=== PATIENT | male | born 1960 | race Caucasian/White ===

== ENCOUNTER → 2017-03-15 11:15 | Outpatient (CLI) | payer OTHER, SELFPAY ==
[2017-03-15 12:40] LABS: AST(SGOT) 18 U/L (15-37); Alanine Aminotransfer ALT/SGPT 24 U/L (16-61); Albumin, Serum 3.5 g/dL (3.2-5.0); Alkaline Phosphatase 96 U/L (45-117); Anion Gap 7 (5-15); BUN 15 mg/dL (7-18); Calcium,Total 8.6 mg/dL (8.5-10.1); Chloride 108 mmol/L (98-107); Cholesterol 149 mg/dL (200); EST Glomerular Filtration Rate 147 mL/min (>60); Est Glom Filt Rate - Afr Amer 178 mL/min (>60); Globulin 3.6 g/dL (2.2-4.2); Glucose 67 mg/dL (74-106); High Density Lipoprotein 45 mg/dL; Potassium 3.9 mmol/L (3.5-5.1); Protein, Total 7.1 g/dL (6.4-8.2); Sodium Level 143 mmol/L (136-145); Thyroid Stim Hormone (TSH) 3.94 uIU/mL (0.358-3.74); Triglycerides 108 mg/dL; Very Low Density Lipoprotein 22 mg/dL (5-40)
== END ==
PROVIDERS: Family Provider Family Medicine; PCP Family Medicine; Visit Provider Family Medicine
DX: E78.5 Hyperlipidemia, unspecified (principal); I10 Essential (primary) hypertension; E03.9 Hypothyroidism, unspecified
CPT/HCPCS: 36415; 80053; 80061; 84443

== ENCOUNTER → 2017-03-15 14:27 | Outpatient (CLI) | payer OTHER, SELFPAY | PROVIDERS: Family Provider Family Medicine; PCP Family Medicine; Visit Provider Family Medicine | DX: S20.419A Abrasion of unspecified back wall of thorax, initial encounter (principal) | CPT/HCPCS: 87070; 87205 ==

== ENCOUNTER → 2017-05-13 17:15 | Emergency (ER) | payer OTHER, SELFPAY ==
[2017-05-13 17:15] VITALS: BP 172/89; PULSE 88; RESP 16; TEMP 37; O2SAT 98; BMI 34.5
--- NOTE | 2017-05-13 17:47 | ED.DCSUM_ITS ---
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 The glass slide broke and blew apart. He states he saw a small piece of glass, shard, fly towards his right eye. He presents because of the right eye not feeling normal. He denies any change in vision or blurred vision. He denies any light sensitivity. He denies any pain with movement. He denies discomfort with blinking. He denies any ocular problems. Physical Examination: Signs remarkable for blood pressure 172/87. Visual acuity was documented on written note. There is no abdomen of the lid, lash and lacrimal glands. Pupils equal round reactive. Extraocular muscles intact. Conjunctivae is not injected. There is no subconjunctival hemorrhage noted. The eye was anesthetized with tetracaine and stained with foreseen. There is a very small circular area of uptake. Mari test was negative. Slight pressure on the globe did not result in any fluid from the area that foreseeing dye uptake was noted. There is no flare or cells in the anterior chamber. Test Results: None. Case was discussed with Dr. Daren Bird. We both were in agreement that a very fine piece of glass without show up on x-ray and CT would not be able to detect this either. Emergency Department Course and Treatment: History, physical including eye examination with slit lamp. Treatment Plan: Adacel 0.5 mg IM, ciprofloxacin ophthalmic drops and ophthalmology referral. Patient is to call the office in morning to be seen in the morning. Disposition: Discharged to home with appropriate home-going instructions Impression: 1. Traumatic injury right eye with fluorescein uptake 2. Unable to determine if globe penetration with self-sealing versus corneal abrasion This note was generated with [employer] dictation software. It may contain incorrect words, spelling, and punctuation that were not noted in review of the chart prior to signing ED Disposition - Plan for ED Patient: Disposition: Home or Assisted Living Chief Complaint: Eye Problem Instructions: Corneal Injury Referrals: Murali Comer MD [Primary Care Provider] - Daren Bird MD [STAFF PHYSICIAN] - 1 Day for another exam Additional Instructions: Call Dr. Bird's office in the morning to be seen tomorrow morning. Instill 1 drop of ciprofloxacin ophthalmic solution every 2-4 hours while awake.
[2017-05-13] MEDS: Ciprofloxacin 0.3% 2.5ml Bottle 1 DRP RIGHT EYE (18:37)
[2017-05-13] MEDS: Diphth,Pertuss(Acell),Tet Vac 0.5 ML Vial IM (18:38)
--- NOTE | 2017-05-13 18:55 | ED.RN ---
1825-Blood obtained for exposure after consent obtained from patient.
[2017-05-13 19:54] LABS: HIV - WCH Non-Reactive (Nonreactive)
[2017-05-14 11:43] VITALS: PULSE 88; RESP 16; TEMP 37; O2SAT 98
[2017-05-15 10:17] LABS: HEPATITIS B SURFACE AG Negative (Negative); Hep B Surface Antibodies EMP Non Reactive (.); Hep C Antibodies 0.1 s/co ratio (0.0-0.9)
== END | disposition home or self-care (01) ==
LOC: ED 19:47 → EDREF 19:52 → ED 05-16 07:29
PROVIDERS: Emergency Provider Emergency Medicine; Family Provider Family Medicine; PCP Family Medicine
DX: T15.01XA Foreign body in cornea, right eye, initial encounter (principal); Z79.4 Long term (current) use of insulin; X58.XXXA Exposure to other specified factors, initial encounter; Y93.89 Activity, other specified; Y92.238 Other place in hospital as the place of occurrence of the external cause; Y99.0 Civilian activity done for income or pay
CPT/HCPCS: 36415; 86703; 86803; 87340; 90471; 90715; 99283

== ENCOUNTER → 2017-06-15 10:52 | Outpatient (CLI) | payer OTHER, SELFPAY ==
[2017-06-15 12:51] LABS: Cholesterol 135 mg/dL (200); High Density Lipoprotein 42 mg/dL; Triglycerides 52 mg/dL; Very Low Density Lipoprotein 10 mg/dL (5-40)
== END ==
PROVIDERS: Family Provider Family Medicine; PCP Family Medicine; Visit Provider Family Medicine
DX: E11.9 Type 2 diabetes mellitus without complications (principal)
CPT/HCPCS: 36415; 80061; 84403

== ENCOUNTER → 2017-10-06 11:24 | Outpatient (CLI) | payer OTHER, SELFPAY ==
[2017-10-06 14:12] LABS: PSA,Total - Annual Screen 0.44 ng/mL (0.00-4.00)
== END ==
PROVIDERS: Family Provider Family Medicine; PCP Family Medicine; Visit Provider Family Medicine
DX: Z12.5 Encounter for screening for malignant neoplasm of prostate (principal)
CPT/HCPCS: 36415; 84153; G0103

== ENCOUNTER → 2017-10-07 14:28 | Outpatient (CLI) | payer OTHER, SELFPAY ==
[2017-10-07 15:22] LABS: AST(SGOT) 13 U/L (15-37); Alanine Aminotransfer ALT/SGPT 17 U/L (16-61); Albumin, Serum 3.4 g/dL (3.2-5.0); Alkaline Phosphatase 100 U/L (45-117); Anion Gap 9 (5-15); BUN 11 mg/dL (7-18); BUN/Creat Ratio 17.5 RATIO (10-20); Calcium,Total 8.5 mg/dL (8.5-10.1); Chloride 105 mmol/L (98-107); Cholesterol 127 mg/dL (200); Creatinine, Serum 0.63 mg/dL (0.70-1.30); EST Glomerular Filtration Rate 140 mL/min (>60); Est Glom Filt Rate - Afr Amer 169 mL/min (>60); Globulin 3.5 g/dL (2.2-4.2); Glucose 96 mg/dL (74-106); High Density Lipoprotein 41 mg/dL; Potassium 4.2 mmol/L (3.5-5.1); Protein, Total 6.9 g/dL (6.4-8.2); Sodium Level 140 mmol/L (136-145); Triglycerides 53 mg/dL; Very Low Density Lipoprotein 11 mg/dL (5-40)
== END ==
PROVIDERS: Family Provider Family Medicine; PCP Family Medicine; Visit Provider Family Medicine
DX: E11.9 Type 2 diabetes mellitus without complications (principal)
CPT/HCPCS: 36415; 80053; 80061

== ENCOUNTER 2018-03-26 17:42 | Emergency (ER) | payer OTHER, SELFPAY ==
[2018-03-26 17:47] VITALS: BP 152/80; PULSE 95; RESP 18; TEMP 36.4; O2SAT 98; BMI 36.6
[2018-03-26 18:25] VITALS: TEMP 36.4
[2018-03-26] MEDS: 0.9% Normal Saline 1,000 ML 1000 ML IV (18:47)
--- NOTE | 2018-03-26 18:50 | RAD_ITS ---
STUDY: X-RAY CHEST REASON FOR EXAM: Male, 57 years old. Cough TECHNIQUE: PA and lateral COMPARISON: None. FINDINGS: There appears to be very minor interstitial thickening in the lower lobes. No focal infiltrates are observed. There is no demonstrated pleural abnormality. Normal size heart. Normal mediastinum and frederick. Normal visualized pulmonary arteries. Normal visualized aortic arch and descending thoracic aorta. Dorsal spine demonstrates mild spondylosis. Normal visualized ribs, clavicles, and shoulders. There is no demonstrated abnormality of the visualized soft tissue structures of the upper abdomen. No significant change since prior exam RAD/Chest PA and Lateral IMPRESSION: No acute cardiopulmonary pathology Electronically Signed: Reagan Delcid MD at 19:35 EST , Service support ,
[2018-03-26 19:16] LABS: Absolute Neutrophil Count 2.4 X10^3/uL (2.0-7.7); Basophil# 0.02 X10^3/uL; Basophil% 0.6 % (0-1); Eosinophil# 0.04 X10^3/uL; Eosinophils% 1.2 % (0-5); Hematocrit 43.3 % (40-54); Hemoglobin 13.7 g/dl (13.0-16.5); Lymphocyte % 20.6 % (19-41); Mean Corp Hgb Conc 31.6 g/gl (32-36); Mean Corpuscular Hgb 27.5 pg (27.0-32.0); Mean Corpuscular Volume 86.9 fL (80-94); Mean Platelet Vol. 10.6 fl (6.2-12.0); Monocyte% 5.9 % (0-10); Neutrophil # 2.44 X10^3/uL (2.7-7.7); Neutrophil % 71.7 % (47-70); Platelet Count 196 K/mm3 (150-450); RBC Distribution Width CV 15.3 % (11.6-14.6); RBC Distribution Width SD 48.8 fl (35.1-43.9); Red Blood Count 4.98 M/mm3 (4.6-6.2); White Blood Count 3.4 K/mm3 (4.4-11.0)
[2018-03-26 19:30] LABS: Anion Gap 7 (5-15); BUN 14 mg/dL (7-18); BUN/Creat Ratio 18.8 RATIO (10-20); Chloride 105 mmol/L (98-107); Creatinine, Serum 0.74 mg/dL (0.70-1.30); EST Glomerular Filtration Rate 115 mL/min (>60); Est Glom Filt Rate - Afr Amer 139 mL/min (>60); Estimated Creatinine Clearance 110.14 ml/min; Glucose 165 mg/dL (74-106); POSITIVE COUNT NO; POSITIVE DIFFERENTIAL NO; POSITIVE MORPHOLOGY NO; Potassium 3.7 mmol/L (3.5-5.1); Sodium Level 138 mmol/L (136-145)
--- NOTE | 2018-03-26 19:46 | ED.DCSUM_ITS ---
- ER Visit Summary Date of Service: 03/26/18 Chief Complaint: Influenza History of Present Illness: The patient is a 57 M with history of fever, chills, and cough since March 21. 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 Patient does report poor p.o. intake. He said cough with yellow to green sputum. He continues to have waxing and waning low-grade fever. Past history is significant for reflux disease, diabetes, hypertension, high cholesterol, hypothyroidism, DVT. Physical Examination: Blood pressure is 152/80, otherwise vitals normal. He is afebrile at 97.6 at this time. Patient sitting on the side of bed no acute distress. Head neck examination reveals normal posterior pharynx. Heart is regular rate and rhythm. Lungs sounds are clear. Abdomen is soft nontender. Test Results: CBC reveals a white count of 3.4, otherwise unremarkable. Chemistry studies significant only for glucose of 165. Two-view chest x-ray shows no acute process. Emergency Department Course and Treatment: Patient was given a liter of IV fluids. I did discuss with him that Tamiflu needs to be started within the first 48 hours and no later than 72 hours after onset of symptoms. Patient is outside this window at this time. I do not think Tamiflu will be beneficial for him and he will only have side effects the medication. He is written a work note for off work until free of fever for 24 hours. Treatment Plan: [] Disposition: Discharge Impression: Influenza B This note was generated with [employer] dictation software. It may contain incorrect words, spelling, and punctuation that were not noted in review of the chart prior to signing ED Disposition - Plan for ED Patient: Disposition: Home or Assisted Living Instructions: ED Flu Referrals: Murali Comer MD [Primary Care Provider] - As Needed
[2018-03-26 20:08] VITALS: BP 160/85; PULSE 72; RESP 16; TEMP 36.8; O2SAT 94
== END 2018-03-26 20:10 | disposition home or self-care (01) ==
PROVIDERS: Emergency Provider Emergency Medicine; Family Provider Family Medicine; PCP Family Medicine
DX: J11.1 Influenza due to unidentified influenza virus with other respiratory manifestations (principal); K21.9 Gastro-esophageal reflux disease without esophagitis; E11.9 Type 2 diabetes mellitus without complications; I10 Essential (primary) hypertension; E78.00 Pure hypercholesterolemia, unspecified; E03.9 Hypothyroidism, unspecified; Z86.718 Personal history of other venous thrombosis and embolism; Z79.4 Long term (current) use of insulin; Z79.899 Other long term (current) drug therapy
CPT/HCPCS: 71046; 80048; 85025; 96360; 99283; J7030

== ENCOUNTER → 2018-05-03 13:53 | Outpatient (CLI) | payer OTHER, SELFPAY ==
[2018-05-03 16:35] LABS: ALB/GLOB Ratio 1.1 RATIO (0.9-2.4); AST(SGOT) 14 U/L (15-37); Alanine Aminotransfer ALT/SGPT 20 U/L (16-61); Albumin, Serum 3.3 g/dL (3.2-5.0); Alkaline Phosphatase 101 U/L (45-117); Anion Gap 7 (5-15); BUN 12 mg/dL (7-18); BUN/Creat Ratio 21.3 RATIO (10-20); Calcium,Total 8.2 mg/dL (8.5-10.1); Chloride 105 mmol/L (98-107); Cholesterol 137 mg/dL (200); Creatinine, Serum 0.56 mg/dL (0.70-1.30); EST Glomerular Filtration Rate 158 mL/min (>60); Est Glom Filt Rate - Afr Amer 192 mL/min (>60); Glucose 99 mg/dL (74-106); High Density Lipoprotein 46 mg/dL; Potassium 4.8 mmol/L (3.5-5.1); Protein, Total 6.3 g/dL (6.4-8.2); Sodium Level 141 mmol/L (136-145); T4 Free Direct 1.32 ng/dL (0.76-1.46); Thyroid Stim Hormone (TSH) 2.28 uIU/mL (0.358-3.74); Triglycerides 74 mg/dL; Very Low Density Lipoprotein 15 mg/dL (5-40)
== END ==
PROVIDERS: Family Provider Family Medicine; PCP Family Medicine; Referring Provider Family Medicine; Visit Provider Family Medicine
DX: E11.9 Type 2 diabetes mellitus without complications (principal); E03.9 Hypothyroidism, unspecified
CPT/HCPCS: 36415; 80053; 80061; 84439; 84443

== ENCOUNTER → 2018-08-02 | Outpatient (CLI) | payer OTHER, SELFPAY ==
[2018-08-02 16:14] LABS: AST(SGOT) 14 U/L (15-37); Alanine Aminotransfer ALT/SGPT 16 U/L (16-61); Albumin, Serum 3.5 g/dL (3.2-5.0); Alkaline Phosphatase 116 U/L (45-117); Bilirubin, Direct 0.16 mg/dL (0.00-0.30); Protein, Total 6.5 g/dL (6.4-8.2)
== END | disposition home or self-care (01) ==
LOC: MFPLAB 14:06
PROVIDERS: Family Provider Family Medicine; PCP Family Medicine; Referring Provider Family Medicine; Visit Provider Family Medicine
DX: B35.1 Tinea unguium (principal)
CPT/HCPCS: 36415; 80076

== ENCOUNTER → 2018-11-08 | Outpatient (CLI) | payer OTHER, SELFPAY ==
[2018-11-08 13:02] LABS: AST(SGOT) 14 U/L (15-37); Alanine Aminotransfer ALT/SGPT 18 U/L (16-61); Albumin, Serum 3.4 g/dL (3.2-5.0); Alkaline Phosphatase 100 U/L (45-117); Anion Gap 7 (5-15); BUN 16 mg/dL (7-18); BUN/Creat Ratio 24.1 RATIO (10-20); Calcium,Total 8.6 mg/dL (8.5-10.1); Chloride 106 mmol/L (98-107); Cholesterol 151 mg/dL (200); Creatinine, Serum 0.66 mg/dL (0.70-1.30); EST Glomerular Filtration Rate 131 mL/min (>60); Est Glom Filt Rate - Afr Amer 158 mL/min (>60); Globulin 3.5 g/dL (2.2-4.2); Glucose 131 mg/dL (74-106); High Density Lipoprotein 45 mg/dL; PSA,Total - Annual Screen 0.44 ng/mL (0.00-4.00); Potassium 4.2 mmol/L (3.5-5.1); Protein, Total 6.9 g/dL (6.4-8.2); Sodium Level 142 mmol/L (136-145); T4 Free Direct 1.28 ng/dL (0.76-1.46); Thyroid Stim Hormone (TSH) 3.71 uIU/mL (0.358-3.74); Triglycerides 69 mg/dL; Very Low Density Lipoprotein 14 mg/dL (5-40)
[2018-11-08 13:03] LABS: Vitamin D,25 Hydroxy 25.2 ng/mL (29.95-100.01)
== END | disposition home or self-care (01) ==
LOC: MFPLAB 11:05
PROVIDERS: Family Provider Family Medicine; PCP Family Medicine; Visit Provider Family Medicine
DX: E11.9 Type 2 diabetes mellitus without complications (principal); E03.9 Hypothyroidism, unspecified; E55.9 Vitamin D deficiency, unspecified; Z12.5 Encounter for screening for malignant neoplasm of prostate
CPT/HCPCS: 36415; 80053; 80061; 82043; 82306; 82570; 84153; 84439; 84443; G0103

== ENCOUNTER 2018-12-03 14:41 | Emergency (ER) | payer OTHER, SELFPAY ==
[2018-12-03 14:41] VITALS: BP 193/89; PULSE 83; RESP 16; TEMP 36.6; O2SAT 99; BMI 35.4
--- NOTE | 2018-12-03 15:11 | EKG12_ITS ---
Test Reason : Blood Pressure : / mmHG Vent. Rate : 076 BPM Atrial Rate : 076 BPM P-R Int : 152 ms QRS Dur : 068 ms QT Int : 352 ms P-R-T Axes : 065 052 067 degrees QTc Int : 396 ms Normal sinus rhythm Normal ECG Confirmed by VINCE STARK, ARNIE ([id number]), visual effects editor ADITYA RODRIGUEZ ([id number]) on 12/05/2018 11:20:17 AM Referred By: Confirmed By:ARNIE CLARKE MD
--- NOTE | 2018-12-03 15:14 | ED.DCSUM_ITS ---
- ER Visit Summary Date of Service: 12/03/18 Chief Complaint: Passed out History of Present Illness: The patient is a 58 M history of diabetes, hypertension kidney stones. Prior DVT. Patient states that on Tuesday he was in his bathroom at home he felt lightheaded he was standing up and passed out for a brief period of time. Prior to the event other than feeling lightheaded he denied any headache, chest pain or abdominal pain. No shortness of breath. He did not feel any irregular, fast or slow heart rate. He typically does not pass out. He believes his blood sugars were fine at that time. He has not passed out since. 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 He has not had a fever. He denies any cough, sore throat dysuria or diarrhea. He did have diarrhea a week ago that since resolved. Physical Examination: Middle-aged male no acute distress vital signs are stable afebrile. Pulse ox 90% room air no signs of hypoxia. HEENT exam unremarkable. Moist week's membranes. No signs of trauma to his face or scalp. Neck nontender no lymphadenopathy. Lungs clear to auscultation bilaterally. Heart regular rate and rhythm no murmur. Abdomen soft and nontender normal bowel sounds no peritoneal signs. Patient is moving all 4 extremities. Neurovascular intact. No cords. Neurologically is awake and alert with no focal motor or sensory deficits. NIH score is 0. Test Results: Chest x-ray one view portable showed no acute asthmatic read both myself and radiologist. Normal cardiac silhouette mediastinum. CBC showed a white count of 4. Hemoglobin was 12 previously was 13-1/2. This will need to be reevaluated. Chemistries normal normal creatinine gap. UA normal. Troponin normal. Lactate normal at 1.3. Orthostatic vital signs were negative. Emergency Department Course and Treatment: Middle-aged male with a syncopal episode about 36 hours ago or so. Normal exam. Clinically does not appear to be septic. He is not hypotensive. He is not tachycardic. He is not febrile. Treated with a liter normal saline. Multiple repeat exams unchanged. Normal. I did go over all test results with patient family. Treatment Plan: Follow-up with primary care physician for syncopal episode. Also may need to have his hemoglobin rechecked since it has been trending down over the last year or so. Disposition: Discharge Impression: Acute syncope of uncertain etiology Mild anemia History of diabetes and hypertension This note was generated with [employer] dictation software. It may contain incorrect words, spelling, and punctuation that were not noted in review of the chart prior to signing ED Disposition - Plan for ED Patient: Referrals: Murali Comer MD [Primary Care Provider] -
[2018-12-03 15:30] VITALS: BP 151/85; BP 162/79; PULSE 76; PULSE 88
--- NOTE | 2018-12-03 15:30 | RAD_ITS ---
STUDY: X-RAY CHEST REASON FOR EXAM: Male, 58 years old. Dizziness for one week, syncope TECHNIQUE: AP COMPARISON: 03/26/2018 FINDINGS: The lungs are clear and expanded. There is no demonstrated pleural abnormality. Normal size heart. Normal mediastinum and frederick. Normal visualized pulmonary arteries. Normal visualized aortic arch and descending thoracic aorta. Normal visualized thoracic spine. Normal visualized ribs, clavicles, and shoulders. Surgical clips project in the left upper abdomen adjacent to the diaphragm. RAD/Chest 1 View (Portable) IMPRESSION: Stable, nonacute portable x-ray examination of the chest. Electronically Signed: Chris Araujo MD (Brooks) at 15:48 EDT , Service support ,
[2018-12-03] MEDS: 0.9% Normal Saline 1,000 ML 1000 ML IV (15:39)
[2018-12-03 15:53] LABS: Mucous, Urine 0 SEEN /hpf (<or=2+); Squamous Epithelial Cells - UA 0 SEEN /hpf (0-5); White Blood Cells 0 SEEN /hpf (0-5)
[2018-12-03 15:58] LABS: Absolute Neutrophil Count 3.3 X10^3/uL (2.0-7.7); Basophil# 0.03 X10^3/uL; Basophil% 0.7 % (0-1); Eosinophils% 2.2 % (0-5); Hematocrit 38.7 % (40-54); Hemoglobin 12.3 g/dL (13.0-16.5); Lymphocyte % 15.5 % (19-41); Mean Corp Hgb Conc 31.8 g/dL (32-36); Mean Corpuscular Hgb 28.1 pg (27.0-32.0); Mean Corpuscular Volume 88.4 fL (80-94); Mean Platelet Vol. 11.1 fl (6.2-12.0); Monocyte# 0.36 X10^3/uL; NRBC Flagged by Analyzer 0 % (0-5); Neutrophil # 3.32 X10^3/uL (2.7-7.7); Neutrophil % 73.4 % (47-70); Platelet Count 196 K/mm3 (150-450); RBC Distribution Width CV 14.1 % (11.6-14.6); RBC Distribution Width SD 45.9 fl (35.1-43.9); Red Blood Count 4.38 M/mm3 (4.6-6.2); White Blood Count 4.5 K/mm3 (4.4-11.0)
[2018-12-03 16:29] LABS: Color, Urine Yellow (Yellow); Glucose, Dipstick 50 mg/dl (Normal); Ketone-Dipstick Negative (Negative); Leukocyte Esterase-Dipstick Negative /ul (Negative); Nitrite-Dipstick Negative (Negative); Occult Blood-Urine Negative /ul (Negative); Protein-Dipstick Negative (Negative); Urine Bilirubin Dipstick Negative (Negative); Urine Clarity Clear (Clear); Urine Urobilinogen 1 mg/dl (Normal)
[2018-12-03 16:33] LABS: Bacteria RARE /hpf (None Seen); Red Blood Cells-Urine 0-5 SEEN /hpf (0-5)
[2018-12-03 16:48] LABS: Anion Gap 2 (5-15); BUN 12 mg/dL (7-18); BUN/Creat Ratio 17.7 RATIO (10-20); Calcium,Total 8.4 mg/dL (8.5-10.1); Chloride 107 mmol/L (98-107); Creatinine, Serum 0.68 mg/dL (0.70-1.30); EST Glomerular Filtration Rate 128 mL/min (>60); Est Glom Filt Rate - Afr Amer 155 mL/min (>60); Estimated Creatinine Clearance 118.41 ml/min; Glucose 100 mg/dL (74-106); Lactic Acid 1.3 mmol/L (0.4-2.0); Potassium 4.3 mmol/L (3.5-5.1); Sodium Level 138 mmol/L (136-145)
--- NOTE | 2018-12-03 17:09 | ED.DEP ---
ED Disposition - Plan for ED Patient: Disposition: Home or Assisted Living Instructions: SYNCOPE, Unk Cause Referrals: Murali Comer MD [Primary Care Provider] - 3-5 Days Additional Instructions: Call and follow-up with your primary care physician. Due to the syncopal episode the episode when she passed out they may want to try a staking press operator on you to watch your heart rhythm. Also you are mildly anemic your hemoglobin is just below normal they may want to recheck that in a week or so. Otherwise your labs and x-rays and EKG today were unremarkable.
[2018-12-03 17:15] VITALS: BP 150/69; PULSE 72; RESP 17; O2SAT 98
== END 2018-12-03 17:19 | disposition home or self-care (01) ==
PROVIDERS: Emergency Provider Emergency Medicine; Family Provider Family Medicine; PCP Family Medicine
DX: R55 Syncope and collapse (principal); D64.9 Anemia, unspecified; E11.9 Type 2 diabetes mellitus without complications; I10 Essential (primary) hypertension; Z87.442 Personal history of urinary calculi; Z86.718 Personal history of other venous thrombosis and embolism
CPT/HCPCS: 71045; 80048; 81001; 83605; 84484; 85025; 93005; 96360; 99285; J7030

== ENCOUNTER 2018-12-06 15:10 | Emergency (ER) | payer OTHER, SELFPAY ==
[2018-12-06 15:11] VITALS: BP 159/82; PULSE 96; RESP 17; RESP 18; TEMP 36.8; O2SAT 96; O2SAT 97; BMI 35.4
--- NOTE | 2018-12-06 15:32 | CT_ITS ---
STUDY: CT BRAIN WITHOUT CONTRAST REASON FOR EXAM: Male, 58 years old. dizzy, numbness in arms and legs RADIATION DOSAGE (If Supplied By Facility): CTDIvol = ( 60.81 ) mGy, DLP = ( 1044.28 ) mGycm TECHNIQUE: Transaxial CT imaging of the brain was performed without administration of intravenous contrast material. Individualized dose optimization techniques were used for this CT. COMPARISON: No relevant priors. FINDINGS: Normal soft tissue structures. Normal calvarium. Left lens replacement. Normal size ventricles and extra-axial spaces for the patient's age. There are areas of decreased attenuation within the white matter tracts of the supratentorial brain, consistent with microvascular disease changes. Normal age-related changes of the basal ganglia. Normal brainstem. Normal cerebellum. There is no intracranial hemorrhage. There are no findings of an acute ischemic infarction. Normal visualized paranasal sinuses. CT/Brain/Head without Contrast IMPRESSION: No CT evidence of acute infarct or hemorrhage. If there is clinical concern for hyperacute ischemia that is not evident by CT, MRI should be considered if possible. Electronically Signed: Todd Garcia MD at 16:36 EDT Tel , Service support ,
--- NOTE | 2018-12-06 15:32 | EKG12_ITS ---
Test Reason : DIZZINESS Blood Pressure : / mmHG Vent. Rate : 080 BPM Atrial Rate : 080 BPM P-R Int : 136 ms QRS Dur : 076 ms QT Int : 356 ms P-R-T Axes : 058 029 037 degrees QTc Int : 410 ms Normal sinus rhythm Normal ECG Confirmed by RICKY STARK, ANA ([id number]), video news editor ADITYA RODRIGUEZ ([id number]) on 12/11/2018 8:26:38 AM Referred By: ANG Confirmed By:JOSUE GARCÍA MD
--- NOTE | 2018-12-06 15:34 | ED.VISSUMM ---
- ER Visit Summary Date of Service: 12/06/18 Chief Complaint: Dizziness History of Present Illness: The patient is a 58 M who presents with dizziness. He was here on Tuesday, 5 days ago. He had similar symptoms at that time but also an episode of syncope. He had a negative/unremarkable work-up including orthostatics, EKG, labs, troponin, urinalysis, chest x-ray. Patient was discharged for outpatient follow-up. He presents with similar symptoms that started today. He did not have syncope today. He reports a history of DVT bilateral edema and sepsis. He said he had similar symptoms in the past years ago when he had sepsis. Physical Examination: Afebrile and vital signs unremarkable. Head and neck atraumatic. Cranial nerves grossly intact. HEENT exam unremarkable. Neck shows good range of motion. Heart regular. Lungs clear. Abdomen soft. Extremities nontender with no edema. Neurovascularly intact. Skin appears normal. No focal or lateralizing neurologic abnormalities grossly. Test Results: We will check EKG, labs. Will add on a d-dimer because of his history of DVT. We will also check CT of his brain. There was no indication to repeat his chest x-ray, urinalysis, lactate, or orthostatic vital signs. Will be monitored. Emergency Department Course and Treatment: EKG showed sinus rhythm at a rate of 80. No sign of acute ischemia or infarction pattern. He was placed on a monitor and had no dysrhythmias. Hemoglobin stable 12.8. Glucose 206. Troponin normal. D-dimer negative. CT brain was negative for any acute process. On further evaluation, patient is stable vital signs. No new or worsening symptoms. I believe he is appropriate for outpatient care. Patient agreed. He will follow-up with his doctor. Return for any new or worsening issues. Treatment Plan: As above Disposition: Discharge Impression: 1. Near syncope This note was generated with [employer] dictation software. It may contain incorrect words, spelling, and punctuation that were not noted in review of the chart prior to signing ED Disposition - Plan for ED Patient: Referrals: Murali Comer MD [Primary Care Provider] -
[2018-12-06 16:11] LABS: Absolute Lymphocyte Count 0.59 X10^3/uL (0.83-4.51); Absolute Neutrophil Count 4.2 X10^3/uL (2.0-7.7); Basophil# 0.03 X10^3/uL; Basophil% 0.6 % (0-1); Eosinophil# 0.12 X10^3/uL; Eosinophils% 2.3 % (0-5); Hemoglobin 12.8 g/dL (13.0-16.5); Lymphocyte # 0.59 X10^3/ul (4.0); Lymphocyte % 11.2 % (19-41); Mean Corpuscular Hgb 28.1 pg (27.0-32.0); Mean Corpuscular Volume 87.7 fL (80-94); Mean Platelet Vol. 10.3 fl (6.2-12.0); Monocyte% 5.7 % (0-10); NRBC Flagged by Analyzer 0 % (0-5); Neutrophil # 4.23 X10^3/uL (2.7-7.7); Neutrophil % 79.8 % (47-70); POSITIVE DIFFERENTIAL YES; Platelet Count 209 K/mm3 (150-450); RBC Distribution Width CV 14.1 % (11.6-14.6); RBC Distribution Width SD 45.4 fl (35.1-43.9); Red Blood Count 4.56 M/mm3 (4.6-6.2); White Blood Count 5.3 K/mm3 (4.4-11.0)
[2018-12-06 16:13] LABS: Differential Indicated SCAN CRITERIA MET
[2018-12-06 16:28] LABS: Anion Gap 6 (5-15); BUN 13 mg/dL (7-18); BUN/Creat Ratio 17.3 RATIO (10-20); Calcium,Total 8.3 mg/dL (8.5-10.1); Chloride 107 mmol/L (98-107); Creatinine, Serum 0.75 mg/dL (0.70-1.30); EST Glomerular Filtration Rate 113 mL/min (>60); Est Glom Filt Rate - Afr Amer 137 mL/min (>60); Estimated Creatinine Clearance 107.36 ml/min; Glucose 206 mg/dL (74-106); Potassium 4.2 mmol/L (3.5-5.1); Sodium Level 141 mmol/L (136-145)
[2018-12-06 16:31] LABS: D-Dimer Quantitative (DVT/PE) 0.36 FEU/ug/m (0.27-0.49)
[2018-12-06 16:54] LABS: Platelet Estimate ADEQUATE (ADEQ); Red Cell Morphology NORM C+C NORMAL (NORM C&C)
--- NOTE | 2018-12-06 16:58 | ED.DEP ---
ED Disposition - Plan for ED Patient: Instructions: NEAR SYNCOPE, Unknown Referrals: Murali Comer MD [Primary Care Provider] -
[2018-12-06 17:17] VITALS: BP 142/77; PULSE 78; RESP 16; O2SAT 97
== END 2018-12-06 17:18 | disposition home or self-care (01) ==
LOC: ED 15:45
PROVIDERS: Emergency Provider Emergency Medicine; Family Provider Family Medicine; PCP Family Medicine
DX: R55 Syncope and collapse (principal); Z86.718 Personal history of other venous thrombosis and embolism; E11.9 Type 2 diabetes mellitus without complications; Z79.4 Long term (current) use of insulin
CPT/HCPCS: 70450; 80048; 84484; 85025; 85379; 93005; 99284; J7030; A4216

== ENCOUNTER → 2018-12-27 06:43 | Outpatient (CLI) | payer OTHER, SELFPAY ==
[2018-12-06 15:11] VITALS: BMI 35.4
--- NOTE | 2018-12-27 09:44 | STRESSREP_ITS ---
Stress Test Report Date: 12-27-18 Procedure: Exercise tolerance test/imaging study Indications: Chest pain; dyspnea Consent: Per the patient Procedure: The patient exercised on a Rosalio protocol for 4 minutes and 55 seconds completing Stage I and 1 minute and 55 seconds of Stage II achieving a peak heart rate of 164 bpm (101 % predicted maximal heart rate) with a peak blood pressure 182/84 mmHg and a peak MET capacity of 6 METs. The baseline ECG demonstrated normal sinus rhythm. The peak exercise ECG demonstrated somatic/motion artifact and no obvious ECG changes. [There were no cardiac dysrhythmias pretest, during exercise, or recovery]. The functional capacity was considered decreased. There was [no complaint of chest discomfort during exercise or recovery]. The examination was discontinued secondary to dyspnea and leg discomfort. Impression: 1. Technically adequate (percent predicted maximal heart rate greater than 85%) exercise tolerance test 2. Peak exercise ECG with somatic/motion artifact with no obvious ECG changes 3. [There were no cardiac dysrhythmias pretest, during exercise, or recovery] 4. Nuclear images pending Myocardial perfusion imaging study: Technique: The patient was injected with 15.0 mCi of technetium 99m Cardiolite and subsequently rest SPECT Cardiolite nuclear imaging was obtained in the horizon alley long, vertical long, and short axis views. The patient exercised on a Rosalio protocol for 4 minutes and 55 seconds completing Stage I and 1 minute and 55 seconds of Stage II achieving a peak heart rate of 164 bpm (101 % predicted maximal heart rate) with a peak blood pressure 182/84 mmHg and a peak MET capacity of 6 METs. The patient was injected with 44.4 mCi of technetium 99m Cardiolite and subsequently stress SPECT Cardiolite nuclear imaging was obtained in the horizontal long, vertical long, and short axis views. A gated Cardiolite study at peak stress was obtained. Interpretation: Rest and stress SPECT Cardiolite nuclear imaging status post realignment, normalization, and attenuation correction, demonstrates the appearance of a small area of subtle diminished tracer uptake near the apical segments without significant change between rest and stress. [There is end systolic thickening and brightening]. The gated Cardiolite study demonstrates [myocardial thickening and inward wall motion]. The reported LVEF is 62 %. Impression: 1. Rest and stress SPECT Cardiolite nuclear imaging demonstrate myocardial perfusion changes appearing compatible with the effects of physiologic apical thinning with no myocardial perfusion changes considered diagnostic for associated stress-induced myocardial ischemia. 2. The gated Cardiolite study reports an LVEF of 62 %. This note was generated with [employer] software. It may contain incorrect words, spelling, and punctuation that were not noted in checking the note before signing.
== END ==
PROVIDERS: Family Provider Family Medicine; PCP Family Medicine; Referring Provider Family Medicine; Visit Provider Family Medicine
DX: R06.00 Dyspnea, unspecified (principal)
CPT/HCPCS: 78452; 93017; A9500

== ENCOUNTER → 2019-02-14 11:19 | Outpatient (CLI) | payer OTHER, SELFPAY ==
[2019-02-14 14:31] LABS: ALB/GLOB Ratio 1.1 RATIO (0.9-2.4); AST(SGOT) 13 U/L (15-37); Alanine Aminotransfer ALT/SGPT 24 U/L (16-61); Albumin, Serum 3.3 g/dL (3.2-5.0); Alkaline Phosphatase 102 U/L (45-117); BUN 18 mg/dL (7-18); BUN/Creat Ratio 29.1 RATIO (10-20); Calcium,Total 8.4 mg/dL (8.5-10.1); Cholesterol 154 mg/dL (200); Creatinine, Serum 0.62 mg/dL (0.70-1.30); EST Glomerular Filtration Rate 142 mL/min (>60); Est Glom Filt Rate - Afr Amer 172 mL/min (>60); Globulin 3.1 g/dL (2.2-4.2); Glucose 71 mg/dL (74-106); Potassium 4.2 mmol/L (3.5-5.1); Protein, Total 6.4 g/dL (6.4-8.2); Sodium Level 140 mmol/L (136-145); Triglycerides 53 mg/dL
[2019-02-14 14:32] LABS: Anion Gap 7 (5-15); Chloride 103 mmol/L (98-107); High Density Lipoprotein 47 mg/dL; Thyroid Stim Hormone (TSH) 3.13 uIU/mL (0.358-3.74); Very Low Density Lipoprotein 11 mg/dL (5-40)
== END ==
PROVIDERS: Family Provider Family Medicine; PCP Family Medicine; Referring Provider Family Medicine; Visit Provider Family Medicine
DX: E11.9 Type 2 diabetes mellitus without complications (principal); E03.9 Hypothyroidism, unspecified
CPT/HCPCS: 36415; 80053; 80061; 84443

== ENCOUNTER → 2019-08-23 | Outpatient (CLI) | payer OTHER, SELFPAY ==
[2019-04-12 14:10] VITALS: BMI 37.5
[2019-07-26 11:51] VITALS: BMI 37.6
--- NOTE | 2019-08-23 07:53 | ECHOD_ITS ---
Reason For Study: SYNCOPE/NEAR SYNCOPE Procedure This was a 2D Doppler, Color Flow transthoracic echocardiogram. The study was technically difficult. Exam performed in department. Left Ventricle Normal LV size. Left ventricular systolic function is normal. The estimated ejection fraction is 60 %. There is evidence of diastolic dysfunction. No regional wall motion abnormalities noted. Right Ventricle Normal RV size. Normal systolic function. Atria Normal left atrium. Normal right atrium. No doppler evidence for ASD. Mitral Valve There is no mitral annular calcification. Normal mitral valve. Trivial mitral valve insufficiency. Tricuspid Valve Normal tricuspid valve. Trivial tricuspid valve insufficiency. Right ventricular systolic pressure estimated to be 31 mmHg. Aortic Valve Trisinus/trileaflet aortic valve. Mild focal aortic valve calcification. Pulmonic Valve The pulmonic valve is not well visualized. Great Vessels Normal sized aortic root. Pericardium/Pleural No pericardial effusion. MMode/2D Measurements & Calculations LVIDd: 3.8 cm IVSd: 1.2 cm Ao root diam: 3.5 cm LVIDs: 2.8 cm LVPWd: 1.2 cm RVDd: 3.3 cm FS: 26.1 % LAV(MOD-bp): 92.0 ml LA A4 area: 26.4 cm2 LA dimension(2D): 3.6 cm LAV(MOD-bp) Indexed: 40.2 ml/m2 LAV(MOD-sp2): 84.0 ml LAV(MOD-sp4): 101.3 ml RA A4 area: 16.9 cm2 Time Measurements MV dec time: 0.23 sec Doppler Measurements & Calculations MV E max amador: 106.1 cm/sec Lat Peak E' Amador: 8.0 cm/sec Med Peak E' Amador: 7.3 cm/sec MV A max amador: 105.3 cm/sec E/E' lat: 13.3 E/E' med: 14.6 MV E/A: 1.0 Ao V2 max: 113.1 cm/sec LV V1 max: 85.7 cm/sec PA V2 max: 100.2 cm/sec Ao max P.1 mmHg LV V1 max P.9 mmHg TR max amador: 264.0 cm/sec TR max P.9 mmHg Interpretation Summary The study was technically difficult. Left ventricular systolic function is normal. The estimated ejection fraction is 60 %. Trivial mitral valve insufficiency. Trivial tricuspid valve insufficiency. Mild focal aortic valve calcification. Right ventricular systolic pressure estimated to be 31 mmHg. There is evidence of diastolic dysfunction. Ordering Physician: Itz Ma Referring Physician: Harinder Comer Performed By: Jonna Roy, SHIVA, RVT
[2019-08-23 08:24] LABS: Hemoglobin 12.1 g/dL (13.0-16.5); Mean Corp Hgb Conc 31.8 g/dL (32-36); Mean Corpuscular Hgb 26.4 pg (27.0-32.0); Mean Platelet Vol. 11.4 fl (6.2-12.0); Platelet Count 202 K/mm3 (150-450); RBC Distribution Width CV 15.3 % (11.6-14.6); Red Blood Count 4.58 M/mm3 (4.6-6.2); White Blood Count 4.1 K/mm3 (4.4-11.0)
[2019-08-23 08:25] LABS: Scan Indicated on CBC? Y/N NO
[2019-08-23 08:45] LABS: Anion Gap 1 (5-15); BUN 13 mg/dL (7-18); BUN/Creat Ratio 20.7 RATIO (10-20); Calcium,Total 8.4 mg/dL (8.5-10.1); Chloride 106 mmol/L (98-107); Creatinine, Serum 0.63 mg/dL (0.70-1.30); EST Glomerular Filtration Rate 139 mL/min (>60); Est Glom Filt Rate - Afr Amer 168 mL/min (>60); Glucose 167 mg/dL (74-106); Potassium 4.4 mmol/L (3.5-5.1); Sodium Level 140 mmol/L (136-145)
--- NOTE | 2019-08-23 13:16 | PCM.TILTTABL ---
- Staff Staff: Joy Rachel, - - Dayami Swanson - Summary Pre Test Resting HR: 64 - Alert and oriented: Warm and dry Pre Test Resting BP: 130/84 - Alert and oriented: Warm and dry Minimum Test HR: 54 - Unconscious Maximum Test HR: 97 - Alert and cool Minimum Test BP: 0/0 - Unconscious Maximum Test BP: 144/84 - Alert and clammy Reason for Test Termination: Syncope Physician Tilt Table Report - Patient's Physicians Primary Care Physician: Murali Comer Dip Lube Operator: Itz Ma Indications/Diagnosis: Syncope Procedure Comments: The patient was brought to the tilt table laboratory laid supine on the tilt table. The patient was awake and alert and warm and dry. The baseline heart rate was 64 bpm with a baseline blood pressure of 130/84 mmHg. The cardiac rhythm was normal sinus rhythm. The patient was placed in the 70 degree upright tilt table position for approximately 30 minutes. The patient was initially O awake and alert and warm and dry. The patient was noted during this time to develop symptoms of dizziness, feeling cool, was subsequently noted to appear clammy, and subsequently became unconscious. The patient was noted to have a minimal heart rate of 54 bpm with an unobtainable blood pressure at the time of unconsciousness. The maximal heart rate was noted at 97 bpm, prior to losing consciousness, and a maximal blood pressure of 144/84 mmHg status post regaining consciousness. The cardiac rhythm was noted to remain sinus rhythm. The patient was returned to the supine position where he was awake and alert and eventually was warm and dry. The patient noted a completing heart rate of 75 bpm with a completing blood pressure of 122/70 mmHg. The cardiac rhythm remained sinus rhythm. The patient was reported as back to baseline and subsequently was released from the tilt table laboratory. Summary: 70 degree tilt table study considered positive for reproducible vasovagal (combined cardioinhibitory and vasodepressor) syncope.
[2019-08-23 13:20] VITALS: BP 0/0; BP 130/84; BP 144/84
== END | disposition home or self-care (01) ==
PROVIDERS: Nurse Practitioner Family; PCP Family Medicine; Referring Provider Internal Medicine Cardiovascular Disease; Visit Provider Internal Medicine Cardiovascular Disease
DX: R55 Syncope and collapse (principal); R00.2 Palpitations; E78.2 Mixed hyperlipidemia; I10 Essential (primary) hypertension
CPT/HCPCS: 36415; 80048; 85027; 93306; 93660; J7040; A4216

== ENCOUNTER → 2021-07-16 | Outpatient (CLI) | payer OTHER, SELFPAY ==
[2021-07-16 13:09] LABS: AST(SGOT) 8 U/L (15-37); Alanine Aminotransfer ALT/SGPT 17 U/L (16-61); Albumin, Serum 3.3 g/dL (3.2-5.0); Alkaline Phosphatase 85 U/L (45-117); Anion Gap 3 (5-15); BUN 16 mg/dL (7-18); BUN/Creat Ratio 23.8 RATIO (10-20); Calcium,Total 8.8 mg/dL (8.5-10.1); Chloride 106 mmol/L (98-107); Creatinine, Serum 0.67 mg/dL (0.70-1.30); EST Glomerular Filtration Rate 128 mL/min (>60); Est Glom Filt Rate - Afr Amer 155 mL/min (>60); Globulin 3.3 g/dL (2.2-4.2); Glucose 103 mg/dL (74-106); PSA,Total - Annual Screen 0.58 ng/mL (0.00-4.00); Potassium 4.1 mmol/L (3.5-5.1); Protein, Total 6.6 g/dL (6.4-8.2); Sodium Level 138 mmol/L (136-145); Thyroid Stim Hormone (TSH) 4.45 uIU/mL (0.358-3.74)
[2021-07-16 13:18] LABS: Hemoglobin A1c 10.7 % (3.8-5.6)
[2021-07-16 16:52] LABS: T4 Free Direct 0.96 ng/dL (0.76-1.46)
== END | disposition home or self-care (01) ==
LOC: MFPLAB 10:47
PROVIDERS: PCP Family Medicine; Referring Provider Family Medicine; Visit Provider Family Medicine
DX: E03.9 Hypothyroidism, unspecified (principal); E11.9 Type 2 diabetes mellitus without complications; Z12.5 Encounter for screening for malignant neoplasm of prostate
CPT/HCPCS: 36415; 80053; 83036; 84153; 84403; 84439; 84443; G0103

== ENCOUNTER 2021-07-30 11:19 | Emergency (ER) | payer OTHER, SELFPAY ==
[2021-07-30 11:20] VITALS: BP 160/79; PULSE 86; RESP 18; TEMP 36.6; O2SAT 98; BMI 37.6
--- NOTE | 2021-07-30 11:47 | RAD_ITS ---
STUDY: X-RAY - LEFT FOOT CLINICAL: Male, 61 years old. Injury/Pain -- Pain, concern for Charcot''s foot/joint disease TECHNIQUE: 3 view(s) of the foot. COMPARISON: None. FINDINGS: Pes planus deformity. Moderate size plantar calcaneal spur noted. Mild to moderate osteophyte formation is seen on the dorsum of the navicular bone. There is also mild demineralization of the osseous structures. Atherosclerotic calcifications are also visualized. Normal talus, calcaneus, and tarsal bones. Normal visualized subtalar, talonavicular, calcaneocuboid, tarsal and tarsometatarsal articulations. Normal metatarsi. Mild narrowing of the first MTP with cortical spurring. Normal tibial and fibular sesamoid bones. Normal interphalangeal joint of the great toe. Normal phalanges of the great toe. Normal second through fifth metatarsophalangeal joints. Normal interphalangeal joints and phalanges of the lesser toes. The soft tissue structures are unremarkable. There is no demonstrated fracture. No x-ray evidence of osteomyelitis. RAD/Foot min 3 Views IMPRESSION: 1. Pes planus deformity. Moderate size plantar calcaneal spur noted. Mild to moderate osteophyte formation is seen on the dorsum of the navicular bone. There is also mild demineralization of the osseous structures. Atherosclerotic calcifications are also visualized. Electronically Signed: Paramjit Otto MD at 12:25 EDT ,
--- NOTE | 2021-07-30 11:58 | ED.VIS.LOWEX ---
HPI History of Present Illness Chief Complaint: Lower Extremity Injury Detail of Chief Complaint: Atraumatic left foot pain Informant: patient Occured/Mechanism Comment: Atraumatic. Pain with standing Onset/Context/Timing Onset: Weeks (Onset approximately 3 weeks. States it was worse after hiking.) Context: Sudden Onset Timing: Intermittent Quality of Pain: Aching Location: Plantar surface left foot Current Severity: Mild Maximum Severity: Severe Worsened by: Weightbearing Relieved by: Elevation rest makes it better Associated Symptoms Associated Symptoms: Positive for Parasthesia; Negative for Weakness or Loss of Funtion Narrative Narrative: Patient is a poorly controlled diabetic. Last A1c was greater than 10. He denies symptoms of claudication. He denies fever, chills night sweats. He denies weight gain or weight loss. He denies any other symptoms. Prior similar symptoms: No Recent Illness/Hospitalization: No [facility] Medical History (Updated 07/30/21 @ 12:[address] Thiago Mccullough MD) Cellulitis of right leg Essential hypertension History of DVT (deep vein thrombosis) Hypothyroidism Mixed hyperlipidemia Syncope Type 2 diabetes mellitus Home Medications dulaglutide 0.75 mg/0.5 mL subcutaneous pen injector 1.5 mg SQ QWEEK 03/26/18 [History Last Taken Unknown] glimepiride 2 mg tablet 4 mg PO DAILY 03/26/18 [History Last Taken Unknown] insulin lispro 100 unit/mL subcutaneous pen 15 unit SQ TIDCM 03/26/18 [History Last Taken Unknown] levothyroxine 100 mcg tablet 100 mcg PO DAILY 03/26/18 [History Last Taken Unknown] atorvastatin 40 mg tablet 40 mg PO QHS 04/04/19 [History Last Taken Unknown] sildenafil 100 mg tablet 100 mg PO DAILY PRN 04/04/19 [History Last Taken Unknown] omeprazole 20 mg tablet,delayed release 20 mg PO DAILY PRN 04/12/19 [History Last Taken Unknown] insulin glargine 100 unit/mL subcutaneous solution 40 unit subcut DAILY 07/26/19 [History Last Taken Unknown] fludrocortisone 0.1 mg tablet 0.1 mg PO DAILY #30 tabs 08/24/19 [Rx Last Taken Unknown] lisinopril 10 mg tablet 10 mg PO DAILY #90 tabs 08/24/19 [Rx Last Taken Unknown] Allergy/AdvReac Type Severity Reaction Status Date / Time No Known Allergies Allergy Verified 07/30/21 11:22 Family History Father CAD (coronary artery disease) History of coronary artery bypass surgery Surgical History Gastric bypass status for obesity Social History (Updated 07/30/21 @ 12:[address] Thiago Mccullough MD) household members: none Smoking Status: Never smoker alcohol intake: never substance use type: does not use caffeine: Yes Type: carbonated beverages Number of servings: 2 and coffee Number of servings: 1 ROS ROS ED Constitutional Constitutional ED: Denies chills, fever(s), subjective, sweats or weight loss Cardiovascular Cardiovascular: Denies chest pain Respiratory/Chest Respiratory/Chest: Denies cough or dyspnea Musculoskeletal Musculoskeletal: Reports other Details: Left foot pain, midfoot ; Denies arthralgias, back pain, myalgias or neck pain Integumentary Denies abscess, Abrasions or rash Neurologic Neurologic: Reports paresthesias; Denies headache(s) or weakness Endocrine Endocrinology: Denies polydipsia or polyphagia Hematologic/Lymphatic Hematologic/Lymphatic: Denies easy bleeding or easy bruising EXAM Physical Exam Const Vital Signs: 07/30/21 11:20 Temperature 98 F Temperature Source Temporal Pulse Rate 86 Respiratory Rate 18 Blood Pressure 160/79 H Blood Pressure Mean 106 Pulse Ox 98 Oxygen Delivery Method Room Air Positive well nourished, well developed and obese General Appearance ED: well developed and NAD Nutritional Appearance: obese HEENT Reports moist mucous membranes HEENT Narrative: Ears normal. Nares patent. Teeth normal. normocephalic Eyes PERRL Eyes Narrative: Extract muscle intact. Sclera is anicteric. Neck full ROM and supple Resp normal respiratory effort, no retractions and clear to auscultation bilaterally Cardio regular rate, regular rhythm, S1 normal heart sound, S2 normal heart sound and no murmurs GI non-tender, non-distended and no masses Extremity Negative for normal to inspection Extremity Narrative: Patient has a very flatfoot. He has no hair on his toes. DP and PT pulse are not palpable. There is Doppler flow. Flow is biphasic. There is no evidence of trauma. There is no specific point tenderness. He does not have pain with forced plantar dorsiflexion of his foot. There is no erythema, warmth or induration. There is no lymphangitis. There is no lymphadenopathy. General Extremety ED: Yes weight-bearing difficulty; Negative for cyanosis or edema General Extremity: weight-bearing difficulty; Negative for cyanosis or edema Neuro oriented x3, CN's II-XII intact bilaterally and moves all extremities Sensorium / Orientation: alert Plantar Reflex: Downgoing: left Psych mental status grossly normal Psych Narrative: Thought process is normal. Skin no wounds Lesions: no lesions Rashes: no rashes [facility] [place] [place] Medical decision making narrative: Patient presents with atraumatic foot pain. Based on history physical doubt Planter fasciitis. Concern for Charcot foot/joint disease due to his diabetes. There is evidence of peripheral arterial disease. Three-view x-ray of the foot was independently reviewed and interpreted by me at 1210. There is evidence of significant atherosclerotic disease. There is demineralization of the bone. Patient has no arch. There is a small calcaneal spur noted. Concern patient has Charcot foot due to his diabetes. Call was placed to Dr. Marie who is on-call for podiatry. Radiography X-Ray: - (Three-view x-ray of the foot was independently reviewed and interpreted by me. The documentations in the MDM narrative.) Diagnostic Testing: Clinical Impression(s) from Imaging Studies Foot X-Ray 07/30/21 11:47 IMPRESSION: 1. Pes planus deformity. Moderate size plantar calcaneal spur noted. Mild to moderate osteophyte formation is seen on the dorsum of the navicular bone. There is also mild demineralization of the osseous structures. Atherosclerotic calcifications are also visualized. Electronically Signed: Paramjit Otto MD at 12:25 EDT Reading Location ID and State: [facility] / [place] , Service support , Discharge Plan Triage Chief Complaint: Lower Extremity Injury ED Provider: Thiago Mccullough Dx/Rx/DC Orders Clinical Impression: Acute pain of left foot, Charcot foot due to diabetes mellitus, PAD (peripheral artery disease) Instructions: Diabetes PAD Prescriptions: No Action atorvastatin 40 mg tablet 40 mg PO QHS sildenafil 100 mg tablet 100 mg PO DAILY PRN Rx Instructions: administer 30 minutes to 4 hours before activity omeprazole 20 mg tablet,delayed release (DR/EC) 20 mg PO DAILY PRN insulin lispro 100 UNIT/ML insulin pen 15 unit SQ TIDCM dulaglutide 0.75 MG/0.5 ML pen injector 1.5 mg SQ QWEEK glimepiride 2 MG tablet 4 mg PO DAILY Label Comments: TAKE 1 TABLET BY MOUTH ONCE DAILY levothyroxine 100 MCG tablet 100 mcg PO DAILY Label Comments: TAKE 1 TABLET BY MOUTH ONCE DAILY insulin glargine 100 unit/mL solution 40 unit SC DAILY fludrocortisone 0.1 mg tablet 0.1 mg PO DAILY Qty: 30 11RF lisinopril 10 mg tablet 10 mg PO DAILY Qty: 90 3RF Primary Care Provider: Murali Comer Referrals: Murali Comer MD [Primary Care Provider] - Tigre Marie DPM [STAFF PHYSICIAN] - As soon as possible Activity Restrictions/Additional Instructions: Go directly to Dr. Tigre Marie's office to be seen now Disposition Disposition: Home, Self Care
== END 2021-07-30 12:57 | disposition home or self-care (01) ==
PROVIDERS: Emergency Provider Emergency Medicine; PCP Family Medicine; Visit Provider Emergency Medicine
DX: E11.610 Type 2 diabetes mellitus with diabetic neuropathic arthropathy (principal); E11.51 Type 2 diabetes mellitus with diabetic peripheral angiopathy without gangrene; Z79.4 Long term (current) use of insulin; I10 Essential (primary) hypertension; E78.2 Mixed hyperlipidemia; E03.9 Hypothyroidism, unspecified; E66.9 Obesity, unspecified; Z79.84 Long term (current) use of oral hypoglycemic drugs; Z79.899 Other long term (current) drug therapy; Z68.37 Body mass index [BMI] 37.0-37.9, adult
CPT/HCPCS: 73630; 99282

== ENCOUNTER 2022-09-09 16:09 | Emergency (ER) | payer OTHER, SELFPAY ==
[2022-09-09 16:10] VITALS: BP 184/82; PULSE 99; RESP 18; TEMP 36.3; O2SAT 99; BMI 39.3
--- NOTE | 2022-09-09 16:18 | CT_ITS ---
STUDY: CT BRAIN WITHOUT CONTRAST REASON FOR EXAM: Male, 62 years old. HTN, headache, vision change Individualized dose optimization techniques were used for this CT. TECHNIQUE: Transaxial CT imaging of the brain was performed without administration of intravenous contrast material. COMPARISON: 12.06.18 FINDINGS: There are calcifications around the carotid artery. These are noted in the cavernous carotid arteries. Normal calvarium. Normal soft tissues. There is mild cerebral atrophy with widening of the extra-axial spaces and ventricular dilatation. There are areas of decreased attenuation within the white matter tracts of the supratentorial brain, consistent with microvascular disease changes. Normal basal ganglia and thalami. Normal brainstem. There is mild cerebellar atrophy. There is no intracranial hemorrhage. There are no findings of an acute ischemic infarction. Normal visualized paranasal sinuses. ASPECTS Score for Acute Strokes: 11/16 CT/Brain/Head without Contrast IMPRESSION: There are no acute findings. Chronic involutional changes of the brain. Electronically Signed: Ko Mcgraw MD at 17:34 EDT ,
--- NOTE | 2022-09-09 16:19 | EKG12_ITS ---
Test Reason : HYPERTENSON Blood Pressure : / mmHG Vent. Rate : 079 BPM Atrial Rate : 079 BPM P-R Int : 150 ms QRS Dur : 068 ms QT Int : 352 ms P-R-T Axes : 055 020 042 degrees QTc Int : 403 ms Normal sinus rhythm Normal ECG Confirmed by VINCE STARK, ARNIE ([id number]), assistant production editor ADITYA RODRIGUEZ ([id number]) on 09/10/2022 10:04:58 AM Referred By: Confirmed By:ARNIE CLARKE MD
--- NOTE | 2022-09-09 16:20 | EX.ED.DYSGE1 ---
HPI History of Present Illness Chief Complaint: Hypertension Detail of Chief Complaint: Headache and vision changes Informant: patient Onset/Context/Timing Onset: Weeks Narrative Narrative: Patient presents secondary to high blood pressure, headache, blurred vision for at least the last 2 weeks. He has a history of hypertension but does not check his blood pressure at home. He reportedly has been taking his lisinopril intermittently. He does state that he took 40 mg of lisinopril this morning. He denies chest pain. [facility] Medical History (Updated 09/09/22 @ 19:[address] Odessa Herndon MD) Cellulitis of right leg Essential hypertension History of DVT (deep vein thrombosis) Hypothyroidism Mixed hyperlipidemia Syncope Type 2 diabetes mellitus Home Medications dulaglutide 0.75 mg/0.5 mL subcutaneous pen injector 1.5 mg SQ QWEEK 03/26/18 [History Last Taken Unknown] glimepiride 2 mg tablet 4 mg PO DAILY 03/26/18 [History Last Taken Unknown] insulin lispro 100 unit/mL subcutaneous pen 15 unit SQ TIDCM 03/26/18 [History Last Taken Unknown] levothyroxine 100 mcg tablet 100 mcg PO DAILY 03/26/18 [History Last Taken Unknown] atorvastatin 40 mg tablet 40 mg PO QHS 04/04/19 [History Last Taken Unknown] sildenafil 100 mg tablet 100 mg PO DAILY PRN 04/04/19 [History Last Taken Unknown] omeprazole 20 mg tablet,delayed release 20 mg PO DAILY PRN 04/12/19 [History Last Taken Unknown] insulin glargine 100 unit/mL subcutaneous solution 40 unit subcut DAILY 07/26/19 [History Last Taken Unknown] fludrocortisone 0.1 mg tablet 0.1 mg PO DAILY #30 tabs 08/24/19 [Rx Last Taken Unknown] lisinopril 10 mg tablet 10 mg PO DAILY #90 tabs 08/24/19 [Rx Last Taken Unknown] Allergy/AdvReac Type Severity Reaction Status Date / Time No Known Allergies Allergy Verified 09/09/22 16:10 Family History Father CAD (coronary artery disease) History of coronary artery bypass surgery Surgical History Gastric bypass status for obesity Social History household members: none Smoking Status: Never smoker alcohol intake: never substance use type: does not use caffeine: Yes Type: carbonated beverages Number of servings: 2 and coffee Number of servings: 1 ROS ROS ED Constitutional Constitutional ED: Denies chills or fever(s) Eyes Eyes: Reports blurry vision bilateral; Denies discharge from eye(s) ENT ENT ED: Denies discharge from eye(s), rhinorrhea or sore throat Cardiovascular Cardiovascular: Denies chest pain or palpitations Respiratory/Chest Respiratory/Chest: Denies cough or dyspnea Gastrointestinal Gastrointestinal: Denies abdominal pain, diarrhea, nausea or vomiting Genitourinary Genitourinary ED: Denies difficulty urinating or dysuria Musculoskeletal Musculoskeletal: Denies back pain or extremity pain Integumentary Denies Abrasions or rash Neurologic Neurologic: Reports headache(s); Denies paresthesias or weakness Psychiatric Psychiatric: Denies anxiety or depression Allergic/Immunologic Allergic/Immunologic ED: Denies lip swelling or urticaria EXAM Physical Exam Const Vital Signs: 09/09/22 16:10 09/09/22 16:20 09/09/22 16:49 Temperature 97.3 F L Temperature Source Temporal Pulse Rate 99 86 Respiratory Rate 18 16 Respiratory Pattern Normal Blood Pressure 184/82 H 153/66 H Blood Pressure Mean 116 95 Pulse Ox 99 95 Oxygen Delivery Method Room Air Room Air 09/09/22 18:38 09/09/22 18:07 Temperature Temperature Source Pulse Rate 78 81 Respiratory Rate 18 16 Respiratory Pattern Blood Pressure 129/65 H 142/63 H Blood Pressure Mean 86 89 Pulse Ox 95 94 Oxygen Delivery Method Room Air Room Air Positive well nourished and well developed General Appearance ED: well developed HEENT Reports normocephalic and head/scalp atraumatic Eyes PERRL and EOMs intact bilaterally Neck supple Chest Wall inspection of chest normal and palpation of chest normal Resp normal respiratory effort and clear to auscultation bilaterally Cardio regular rate and regular rhythm GI normal to inspection, nondistended, normoactive bowel sounds Palpation: soft Extremity normal to inspection Neuro oriented x3 and no sensory deficits noted Sensorium / Orientation: alert Motor Exam: strength 5/5 throughout Psych mental status grossly normal Skin no rashes or lesions noted MDM MDM MDM Narrative Medical decision making narrative: Patient is placed on manager tax. EKG obtained to evaluate for cardiac arrhythmia/ischemia. Chest x-ray obtained to evaluate for acute lung pathology, cardiac size, or mediastinal abnormality. Labwork obtained to evaluate for leukocytosis, anemia, and electrolyte derangement. Urinalysis obtained to evaluate for infection/hematuria. Patient given 10 mg of IV labetalol. CT scan of the head obtained to evaluate for possible bleed given his hypertension and headache Lab Data Attestation: I reviewed the patient's lab results. Labs: Laboratory Results - last 24 hr 09/09/22 09/09/22 16:55 18:00 WBC 6.8 RBC 4.47 L Hgb 11.6 L Hct 37.3 L MCV 83.4 MCH 26.0 L MCHC 31.1 L RDW Std Deviation 47.5 H RDW Coeff of Shannon 15.7 H Plt Count 216 MPV 10.9 Immature Gran % (Auto) 0.400 Neut % (Auto) 84.6 H Lymph % (Auto) 9.[address] [place] % (Auto) 4.7 Eos % (Auto) 0.6 Baso % (Auto) 0.4 Absolute Neuts (auto) 5.8 Absolute Lymphs (auto) 0.63 L Nucleated RBC % 0 Sodium 138 Potassium 4.1 Chloride 105 Carbon Dioxide 28.0 Anion Gap 5 BUN 14 Creatinine 0.76 Estim Creat Clear Calc 100.78 Est GFR (MDRD) Af Amer 134 Est GFR (MDRD) Non-Af 110 BUN/Creatinine Ratio 18.4 Glucose 260 H Lactic Acid 0.7 Calcium 8.4 L Total Bilirubin 0.40 Direct Bilirubin 0.11 AST 14 L ALT 18 Alkaline Phosphatase 108 Total Protein 6.4 Albumin 2.9 L Globulin 3.5 Urine Color Yellow Urine Clarity Clear Urine pH 5.0 Ur Specific Coral 1.020 Urine Protein 30 H Urine Glucose (UA) 1000 H Urine Ketones 50 H Urine Occult Blood 10 H Urine Nitrite Negative Urine Bilirubin Negative Urine Urobilinogen Normal Ur Leukocyte Esterase Negative Urine RBC 0 SEEN Urine WBC 0 SEEN Ur Squamous Epith Cells 0 SEEN Urine Bacteria 0 SEEN Urine Mucus 1+ Radiography Chest X-Ray - ED: 1 View, Read by ED Physician, Normal, Heart, Lungs and Mediastinum Diagnostic Testing: Clinical Impression(s) from Imaging Studies Brain CT 09/09/22 16:18 IMPRESSION: There are no acute findings. Chronic involutional changes of the brain. Electronically Signed: Ko Mcgraw MD at 17:34 EDT , Chest X-Ray 09/09/22 17:10 IMPRESSION: No radiographic evidence of acute cardiopulmonary disease. Electronically Signed: Ko Mcgraw MD at 17:27 EDT , EKG Initial EKG: Attestation: I personally reviewed and interpreted this EKG as follows: Interpretation: Sinus Rhythm (Sinus at 79 with no acute ischemia.) Treatment and Re-Evaluation :: CBC reveals normal white count at 6.8 with hemoglobin 11.6. Chemistry studies reveal normal sodium and potassium. Normal renal function. Glucose is 260. LFTs are unremarkable. Urinalysis does reveal 1000 glucose and 30 protein. No blood. Chest x-ray per my interpretation reveals no acute findings. Radiology interpretation is reviewed and agrees. CT scan of the head reveals no acute findings. Patient is given 30 mg of IV Toradol for headache after return of his head CT. At this time patient's systolic blood pressure is running in the 120s to 140s. He does report improvement in his headache. We discussed his lab findings. Patiently written off work the rest of the day. I encouraged him to take his lisinopril regularly and keep a journal of his blood pressure readings. This will ultimately help determine whether the patient needs to be started on a second agent or if his dose of lisinopril needs to be adjusted. He voices understanding and agreement. Return instructions given. Discharge Plan Triage Chief Complaint: Hypertension ED Provider: Odessa Herndon Dx/Rx/DC Orders Clinical Impression: Essential hypertension, Cephalgia Instructions: Self-Care for Headaches, Understanding Headache Pain, ED Hypertension, Established Prescriptions: No Action atorvastatin 40 mg tablet 40 mg PO QHS sildenafil 100 mg tablet 100 mg PO DAILY PRN Rx Instructions: administer 30 minutes to 4 hours before activity omeprazole 20 mg tablet,delayed release (DR/EC) 20 mg PO DAILY PRN insulin lispro 100 UNIT/ML insulin pen 15 unit SQ TIDCM dulaglutide 0.75 MG/0.5 ML pen injector 1.5 mg SQ QWEEK glimepiride 2 MG tablet 4 mg PO DAILY Patient Comments: TAKE 1 TABLET BY MOUTH ONCE DAILY levothyroxine 100 MCG tablet 100 mcg PO DAILY Patient Comments: TAKE 1 TABLET BY MOUTH ONCE DAILY insulin glargine 100 unit/mL solution 40 unit SC DAILY fludrocortisone 0.1 mg tablet 0.1 mg PO DAILY Qty: 30 11RF lisinopril 10 mg tablet 10 mg PO DAILY Qty: 90 3RF Stand Alone Forms: ED Work / School Excuse Primary Care Provider: Murali Comer Referrals: Murali Comer MD [Primary Care Provider] - 1-2 Weeks Activity Restrictions/Additional Instructions: As discussed, please take your lisinopril regularly and keep a journal of your blood pressures. This will help your doctor determine if a change in your medication needs to be made. Disposition Disposition: Home, Self Care
[2022-09-09] MEDS: Labetalol (Prefilled) 20 MG/4 ML 10 MG IV (16:48)
[2022-09-09 16:49] VITALS: BP 153/66; PULSE 86; RESP 16; O2SAT 95
--- NOTE | 2022-09-09 17:10 | RAD_ITS ---
EXAM: XR CHEST, 1 VIEW CLINICAL INDICATION: HTN TECHNIQUE: Frontal view of the chest. COMPARISON: 12.03.18 FINDINGS: LUNGS AND PLEURAL SPACES: Unremarkable. No consolidation or edema. No pneumothorax. No effusion. HEART: Unremarkable. Cardiac silhouette not enlarged. MEDIASTINUM: Central airways and mediastinal contour are unremarkable. BONES/JOINTS: Unremarkable. SOFT TISSUES: Unremarkable. RAD/Chest 1 View (Portable) IMPRESSION: No radiographic evidence of acute cardiopulmonary disease. Electronically Signed: Ko Mcgraw MD at 17:27 EDT ,
[2022-09-09 17:11] LABS: Absolute Lymphocyte Count 0.63 X10^3/uL (0.83-4.51); Absolute Neutrophil Count 5.8 X10^3/uL (2.0-7.7); Basophil# 0.03 X10^3/uL; Basophil% 0.4 % (0-1); Eosinophil# 0.04 X10^3/uL; Eosinophils% 0.6 % (0-5); Hematocrit 37.3 % (40-54); Hemoglobin 11.6 g/dL (13.0-16.5); Lymphocyte # 0.63 X10^3/ul (0.83-4.51); Lymphocyte % 9.3 % (19-41); Mean Corp Hgb Conc 31.1 g/dL (32-36); Mean Corpuscular Volume 83.4 fL (80-94); Mean Platelet Vol. 10.9 fl (6.2-12.0); Monocyte# 0.32 X10^3/uL; Monocyte% 4.7 % (0-10); NRBC Flagged by Analyzer 0 % (0-5); Neutrophil # 5.75 X10^3/uL (2.7-7.7); Neutrophil % 84.6 % (47-70); Platelet Count 216 K/mm3 (150-450); RBC Distribution Width CV 15.7 % (11.6-14.6); RBC Distribution Width SD 47.5 fl (35.1-43.9); Red Blood Count 4.47 M/mm3 (4.6-6.2); White Blood Count 6.8 K/mm3 (4.4-11.0)
[2022-09-09 17:31] LABS: AST(SGOT) 14 U/L (15-37); Alanine Aminotransfer ALT/SGPT 18 U/L (16-61); Albumin, Serum 2.9 g/dL (3.2-5.0); Alkaline Phosphatase 108 U/L (45-117); Anion Gap 5 (5-15); BUN 14 mg/dL (7-18); BUN/Creat Ratio 18.4 RATIO (10-20); Bilirubin, Direct 0.11 mg/dL (0.00-0.30); Calcium,Total 8.4 mg/dL (8.5-10.1); Chloride 105 mmol/L (98-107); Creatinine, Serum 0.76 mg/dL (0.70-1.30); EST Glomerular Filtration Rate 110 mL/min (>60); Est Glom Filt Rate - Afr Amer 134 mL/min (>60); Estimated Creatinine Clearance 100.78 ml/min; Globulin 3.5 g/dL (2.2-4.2); Glucose 260 mg/dL (74-106); Potassium 4.1 mmol/L (3.5-5.1); Protein, Total 6.4 g/dL (6.4-8.2); Sodium Level 138 mmol/L (136-145)
[2022-09-09 17:33] LABS: Lactic Acid 0.7 mmol/L (0.4-1.9)
[2022-09-09] MEDS: Ketorolac 30 MG/ML Syringe IV (18:05)
[2022-09-09 18:07] VITALS: BP 142/63; PULSE 81; RESP 16; O2SAT 94
[2022-09-09 18:16] LABS: Bacteria 0 SEEN /hpf (None Seen); Color, Urine Yellow (Yellow); Glucose, Dipstick 1000 mg/dl (Normal); Ketone-Dipstick 50 mg/dl (Negative); Leukocyte Esterase-Dipstick Negative /ul (Negative); Nitrite-Dipstick Negative (Negative); Occult Blood-Urine 10 /ul (Negative); Protein-Dipstick 30 mg/dl (Negative); Red Blood Cells-Urine 0 SEEN /hpf (0-5); Squamous Epithelial Cells - UA 0 SEEN /hpf (0-5); Urine Bilirubin Dipstick Negative (Negative); Urine Clarity Clear (Clear); Urine Urobilinogen Normal (Normal); White Blood Cells 0 SEEN /hpf (0-5)
[2022-09-09 18:36] LABS: Mucous, Urine 1+ /hpf (<or=2+)
[2022-09-09 18:38] VITALS: BP 129/65; PULSE 78; RESP 18; O2SAT 95
== END 2022-09-09 19:23 | disposition home or self-care (01) ==
PROVIDERS: Emergency Provider Emergency Medicine; PCP Family Medicine; Visit Provider Emergency Medicine
DX: I10 Essential (primary) hypertension (principal); E11.9 Type 2 diabetes mellitus without complications; Z79.4 Long term (current) use of insulin; E78.2 Mixed hyperlipidemia; R51.9 Headache, unspecified; E03.9 Hypothyroidism, unspecified; Z79.899 Other long term (current) drug therapy
CPT/HCPCS: 70450; 71045; 80048; 80076; 81001; 83605; 85025; 93005; 96374; 96375; 99284; A4216

== ENCOUNTER → 2022-09-16 | Outpatient (CLI) | payer OTHER, SELFPAY ==
[2022-09-16 17:54] LABS: Absolute Lymphocyte Count 0.79 X10^3/uL (0.83-4.51); Absolute Neutrophil Count 3.2 X10^3/uL (2.0-7.7); Basophil# 0.04 X10^3/uL; Basophil% 0.9 % (0-1); Eosinophil# 0.09 X10^3/uL; Eosinophils% 2.1 % (0-5); Hematocrit 37.7 % (40-54); Hemoglobin 11.7 g/dL (13.0-16.5); Lymphocyte # 0.79 X10^3/ul (0.83-4.51); Lymphocyte % 18.1 % (19-41); Mean Corpuscular Hgb 26.2 pg (27.0-32.0); Mean Corpuscular Volume 84.3 fL (80-94); Mean Platelet Vol. 11.2 fl (6.2-12.0); Monocyte# 0.27 X10^3/uL; Monocyte% 6.2 % (0-10); NRBC Flagged by Analyzer 0 % (0-5); Neutrophil # 3.16 X10^3/uL (2.7-7.7); Neutrophil % 72.5 % (47-70); Platelet Count 237 K/mm3 (150-450); RBC Distribution Width CV 15.9 % (11.6-14.6); RBC Distribution Width SD 48.4 fl (35.1-43.9); Red Blood Count 4.47 M/mm3 (4.6-6.2); White Blood Count 4.4 K/mm3 (4.4-11.0)
[2022-09-16 18:18] LABS: Ferritin 8 ng/mL (26-388); Iron 26 ug/dL (65-175); Iron Binding Capacity,Total 307 ug/dL (250-450); PERCENT IRON SATURATION 8.5 % (15.0-55.0); Thyroid Stim Hormone (TSH) 2.22 uIU/mL (0.358-3.74)
== END | disposition home or self-care (01) ==
LOC: MFPLAB 15:15
PROVIDERS: PCP Family Medicine; Visit Provider Family Medicine
DX: D64.9 Anemia, unspecified (principal); E03.9 Hypothyroidism, unspecified
CPT/HCPCS: 36415; 82728; 83540; 83550; 84443; 85025; 87040

== ENCOUNTER → 2022-09-30 | Outpatient (CLI) | payer OTHER, SELFPAY ==
[2022-09-30 15:34] LABS: Cholesterol 137 mg/dL (200); Ferritin 10 ng/mL (26-388); High Density Lipoprotein 44 mg/dL; Iron 69 ug/dL (65-175); Iron Binding Capacity,Total 510 ug/dL (250-450); Triglycerides 54 mg/dL; Very Low Density Lipoprotein 11 mg/dL (5-40)
== END | disposition home or self-care (01) ==
LOC: MFPLAB 14:34
PROVIDERS: Family Medicine; PCP Family Medicine; Visit Provider Family Medicine
DX: D64.9 Anemia, unspecified (principal)
CPT/HCPCS: 36415; 80061; 82728; 83540; 83550; 84153; G0103

== ENCOUNTER 2022-11-01 23:14 | Emergency (ER) | payer OTHER, SELFPAY ==
[2022-11-01 23:16] VITALS: BP 165/80; PULSE 94; RESP 16; TEMP 36; O2SAT 99; BMI 39.1
--- NOTE | 2022-11-02 00:06 | EX.ED.DYSGE1 ---
HPI History of Present Illness Chief Complaint: Lower Extremity Injury Informant: patient Narrative Narrative: Patient is a 62-year-old male with past medical history of hypertension hyperlipidemia type 2 diabetes lymphedema and remote history of lower right extremity DVT. He states that over the last few days he has noticed pain in the medial mid right thigh. He states that it hurts with palpation and motion. He does state that he had a fall few days prior to the pain beginning. He states that the pain feels similar nature to his remote DVT and he states he had an outpatient D-dimer that was elevated approximately 0.7. He denies chest pain fevers chills or shortness of breath but with concern for potential DVT presents for evaluation. [facility] Medical History (Updated 11/02/22 @ 03:[address] Orion Nath DO) Cellulitis of right leg Essential hypertension History of DVT (deep vein thrombosis) Hypothyroidism Mixed hyperlipidemia Syncope Type 2 diabetes mellitus Home Medications dulaglutide 0.75 mg/0.5 mL subcutaneous pen injector 1.5 mg SQ QWEEK 03/26/18 [History Last Taken Unknown] glimepiride 2 mg tablet 4 mg PO DAILY 03/26/18 [History Last Taken Unknown] insulin lispro 100 unit/mL subcutaneous pen 15 unit SQ TIDCM 03/26/18 [History Last Taken Unknown] levothyroxine 100 mcg tablet 100 mcg PO DAILY 03/26/18 [History Last Taken Unknown] atorvastatin 40 mg tablet 40 mg PO QHS 04/04/19 [History Last Taken Unknown] sildenafil 100 mg tablet 100 mg PO DAILY PRN 04/04/19 [History Last Taken Unknown] omeprazole 20 mg tablet,delayed release 20 mg PO DAILY PRN 04/12/19 [History Last Taken Unknown] insulin glargine 100 unit/mL subcutaneous solution 40 unit subcut DAILY 07/26/19 [History Last Taken Unknown] fludrocortisone 0.1 mg tablet 0.1 mg PO DAILY #30 tabs 08/24/19 [Rx Last Taken Unknown] lisinopril 10 mg tablet 10 mg PO DAILY #90 tabs 08/24/19 [Rx Last Taken Unknown] apixaban 5 mg (74 tabs) tablets in a dose pack (Eliquis DVT-PE Treat 30D Start) 5 mg PO BID #74 tabs 11/02/22 [Rx Last Taken Unknown] Allergy/AdvReac Type Severity Reaction Status Date / Time No Known Allergies Allergy Verified 11/01/22 23:34 Family History Father CAD (coronary artery disease) History of coronary artery bypass surgery Surgical History Gastric bypass status for obesity Social History household members: none Smoking Status: Never smoker alcohol intake: never substance use type: does not use caffeine: Yes Type: carbonated beverages Number of servings: 2 and coffee Number of servings: 1 ROS ROS ED Constitutional Constitutional ED: Denies chills or fever(s) ENT ENT ED: Denies sore throat Cardiovascular Cardiovascular: Denies chest pain, palpitations or racing heartbeat Respiratory/Chest Respiratory/Chest: Denies cough or dyspnea Gastrointestinal Gastrointestinal: Denies abdominal pain, diarrhea, nausea or vomiting Genitourinary Genitourinary ED: Denies dysuria Musculoskeletal Musculoskeletal: Reports other Details: Positive right thigh pain Integumentary Denies rash Neurologic Neurologic: Denies headache(s) Hematologic/Lymphatic Hematologic/Lymphatic: Denies easy bleeding or easy bruising EXAM Physical Exam Const Vital Signs: 11/01/22 23:16 Temperature 96.8 F L Temperature Source Temporal Pulse Rate 94 Respiratory Rate 16 Blood Pressure 165/80 H Blood Pressure Mean 108 Pulse Ox 99 Oxygen Delivery Method Room Air Positive well nourished and well developed General Appearance ED: well developed HEENT HEENT Narrative: Normocephalic/atraumatic Eyes PERRL and EOMs intact bilaterally General Eye ED: Negative for scleral icterus Neck supple Resp normal respiratory effort and clear to auscultation bilaterally Cardio regular rate and regular rhythm Rate: other Other Details: Radial and carotid pulses are equal and symmetric Extremity Extremity Narrative: Patient has lymphedema of the left leg which is chronic in nature. Right lower extremity is neurovascularly intact. There is mild pain with palpation along the medial aspect of the distal third of the right thigh. There is no palpable cord noted and no overlying erythema or warmth or signs of infection or trauma. Pelvis is stable there is no shortening or external rotation of either lower extremity Neuro oriented x3 and CN's II-XII intact bilaterally Sensorium / Orientation: alert Psych mental status grossly normal Skin no rashes or lesions noted MDM MDM MDM Narrative Medical decision making narrative: Patient presented to the ER mildly hypertensive but otherwise afebrile and satting 98 to 100% on room air in no acute respiratory distress. He reported pain in the right medial thigh and does have remote history of DVT. Moreover he states he had D-dimer obtained which was technically elevated at 0.7. Differential diagnosis is for DVT versus cellulitis versus contusion as he had history of fall versus pulmonary embolus. As the patient is afebrile with no overlying erythema concerning for cellulitis is low. Also he is not tachycardic or hypoxic or having pleuritic chest pain so my concern for pulmonary embolus is low as well and I feel no need for a CTA. At this time of eating I cannot perform a venous duplex but as patient is high risk for a DVT as he has had 1 in the past he will be given Lovenox in an outpatient venous duplex will be obtained. The patient was advised to return if he develops fever chest pain or shortness of breath but this time as he does not have those he agrees there is no need for a CT scan. Therefore patient be protected with 1.5 mg/kg Lovenox shot at this visit and as DVT is the most likely cause of his symptoms Eliquis starter pack will be prescribed as well History & Record Review Discussion w/independent historian: Patient Discharge Plan Triage Chief Complaint: Lower Extremity Injury ED Provider: Orion Nath Dx/Rx/DC Orders Clinical Impression: Pain in right thigh, Essential hypertension, Type 2 diabetes mellitus, History of deep vein thrombosis (DVT) of lower extremity Instructions: DVT Dc Prescriptions: New Eliquis DVT-PE Treat 30D Start 5 mg (74 tabs) tablets,dose pack 5 mg PO BID Qty: 74 0RF No Action atorvastatin 40 mg tablet 40 mg PO QHS sildenafil 100 mg tablet 100 mg PO DAILY PRN Rx Instructions: administer 30 minutes to 4 hours before activity omeprazole 20 mg tablet,delayed release (DR/EC) 20 mg PO DAILY PRN insulin lispro 100 UNIT/ML insulin pen 15 unit SQ TIDCM dulaglutide 0.75 MG/0.5 ML pen injector 1.5 mg SQ QWEEK glimepiride 2 MG tablet 4 mg PO DAILY Patient Comments: TAKE 1 TABLET BY MOUTH ONCE DAILY levothyroxine 100 MCG tablet 100 mcg PO DAILY Patient Comments: TAKE 1 TABLET BY MOUTH ONCE DAILY insulin glargine 100 unit/mL solution 40 unit SC DAILY fludrocortisone 0.1 mg tablet 0.1 mg PO DAILY Qty: 30 11RF lisinopril 10 mg tablet 10 mg PO DAILY Qty: 90 3RF Other Ambulatory Orders: Venous Duplex US, Unilateral (Stat) Facility: [facility] - Location: [facility] Ordered By: Dr. Orion Nath Primary Care Provider: Murali Comer Referrals: Murali Comer MD [Primary Care Provider] - Activity Restrictions/Additional Instructions: Please get your outpatient venous duplex tomorrow as ordered to check for potential DVT based on your history and elevated D-dimer. If it is positive you may start the Eliquis which was prescribed today. If you develop chest pain or shortness of breath or have any further concerns please return to the ER for repeat evaluation Disposition Disposition: Home, Self Care Discharge Date/Time: 11/02/22 00:34
[2022-11-02] MEDS: Enoxaparin 100 MG/ML Syringe 180 MG SC (00:33)
== END 2022-11-02 00:34 | disposition home or self-care (01) ==
LOC: ED 11-02 00:19
PROVIDERS: Emergency Provider Emergency Medicine; PCP Family Medicine; Visit Provider Emergency Medicine
DX: M79.651 Pain in right thigh (principal); E11.9 Type 2 diabetes mellitus without complications; I10 Essential (primary) hypertension; E78.2 Mixed hyperlipidemia; Z86.718 Personal history of other venous thrombosis and embolism
CPT/HCPCS: 96372; 99282

== ENCOUNTER → 2022-11-03 | Outpatient (CLI) | payer OTHER, SELFPAY ==
--- NOTE | 2022-11-03 14:08 | VDLE_ITS ---
Reason For Study: Pain RLE RIGHT LEFT GSV is normal. CFV is compressible, spontaneous, phasic, CFV is compressible, spontaneous, phasic, competent, and demonstrates normal competent and demonstrates normal augmentation. augmentation. FV is compressible, spontaneous, phasic, competent and demonstrates normal augmentation. POP V is compressible, spontaneous, phasic, competent and demonstrates normal augmentation. T/P Trunk is compressible. PTV is compressible. RT PerV is compressible. Procedure This is a venous duplex using B-mode, color flow and spectral Doppler. Exam performed in department. A preliminary report was called and/or faxed to Dr. Comer. VL/Venous Duplex US, Unilateral Interpretation Summary Deep veins of the right lower extremity are patent and compressible segmentally . There is no evidence of right lower extremity deep vein thrombosis. The right great sapheno us vein appears patent and compressible segmentally. Ordering Physician: Orion Nath Referring Physician: Harinder Comer Performed By: Luciana Martinez RDCS, RVT
== END | disposition home or self-care (01) ==
LOC: CVS 14:08
PROVIDERS: PCP Family Medicine; Visit Provider Emergency Medicine
DX: M79.604 Pain in right leg (principal)
CPT/HCPCS: 93971

== ENCOUNTER 2022-11-24 08:37 | Day surgery (SDC) | payer OTHER, SELFPAY ==
[2022-11-24] MEDS: Lactated Ringers 1,000 ML 15 ML IV (09:09)
[2022-11-24 09:10] VITALS: BP 163/81; PULSE 77; RESP 17; TEMP 36.6; O2SAT 98; BMI 39.6
--- NOTE | 2022-11-24 09:29 | HP.PCM_ITS ---
[facility] - General General Date of Admission: 11/24/22 Date of Service: 11/24/22 Chief Complaint: Screening colonoscopy HPI Narrative HINA ROMANO, is a 62 M who presents today for screening colonoscopy. He has past medical history positive for hypothyroidism, hyperlipidemia, type 2 diabetes, hypertension. He has never had a colonoscopy in the past. Does not have any problems with his bowels at this time. He denies any bleeding per rect um, constipation or diarrhea. He has no family history of colon cancer or colon malignancy. All other 16 review systems negative except as per past mentioned [facility] Medical History Anemia Cardiology follow-up encounter Cellulitis of right leg Diabetes Essential hypertension Gout Heartburn High cholesterol History of DVT (deep vein thrombosis) History of echocardiogram History of edema History of GI bleed History of kidney stones History of stress test History of tilt table evaluation Hypothyroidism Mixed hyperlipidemia Non-smoker Syncope Thyroid disease Type 2 diabetes mellitus Wears glasses Home Medications dulaglutide 0.75 mg/0.5 mL subcutaneous pen injector 1.5 mg SQ QWEEK 03/26/18 [History Last Taken Unknown] insulin lispro 100 unit/mL subcutaneous pen 15 unit SQ TIDCM 03/26/18 [History Last Taken Unknown] levothyroxine 100 mcg tablet 100 mcg PO DAILY 03/26/18 [History Last Taken Unknown] atorvastatin 40 mg tablet 40 mg PO QHS 04/04/19 [History Last Taken Unknown] sildenafil 100 mg tablet 100 mg PO DAILY PRN sexual activity 04/04/19 [History Last Taken Unknown] omeprazole 20 mg tablet,delayed release 20 mg PO DAILY PRN acid reflux 04/12/19 [History Last Taken Unknown] insulin glargine 100 unit/mL subcutaneous solution 40 unit subcut DAILY 07/26/19 [History Last Taken Unknown] ferrous sulfate 325 mg (65 mg iron) tablet 325 mg PO DAILY 11/10/22 [History Last Taken Unknown] lisinopril 10 mg tablet 40 mg PO DAILY 11/23/22 [History Last Taken Unknown] Allergy/AdvReac Type Severity Reaction Status Date / Time No Known Allergies Allergy Verified 11/24/22 08:51 Family History Father CAD (coronary artery disease) History of coronary artery bypass surgery Surgical History Gastric bypass status for obesity Social History (Updated 11/10/22 @ 08:18 by Henna Daniel) household members: none current occupational status: employed current occupation: [employer] Smoking Status: Never smoker alcohol intake: never substance use type: does not use caffeine: Yes Type: carbonated beverages Number of servings: 2 and coffee Number of servings: 1 ROS Review of Systems ROS Unobtainable: other Constitutional Constitutional: Denies fatigue, fever(s), poor appetite, weight gain or weight loss ENT HEENT: Denies mouth lesions Cardiovascular Cardiovascular: Denies abdominal bloating, abdominal edema or abdominal pain Respiratory/Chest Respiratory/Chest: Denies change in mental status, change in phlegm color, chest congestion or chest tightness Gastrointestinal Gastrointestinal: Denies belching, bloating, change in bowel habits, change in stool character, chewing difficulty, coffee ground emesis, constipation, cramping, diarrhea, dyspepsia, dysphagia, early satiety, excessive flatus, fecal incontinence, heartburn, hematemesis, hematochezia, hemorrhoids, loose stools, melena, nausea, odynophagia, rectal bleeding, tenesmus, vomiting or weight changes Genitourinary Genitourinary: Denies abdominal discomfort, burning urination or itching Musculoskeletal Musculoskeletal: Reports as per HPI; Denies muscle weakness or myalgias Integumentary Integumentary: Denies jaundice Neurologic Neurologic: Denies lack of coordination or weakness Psychiatric Psychiatric: Denies confusion, depression, memory loss, mood swings, paranoia or suicidal ideation Endocrine Endocrinology: Denies systems reviewed and no addt'l complaints, except as documented Hematologic/Lymphatic Hematologic/Lymphatic: Denies anemia, easy bleeding, easy bruising or lympha denopathy Allergic/Immunologic Allergic/Immunologic: Denies systems reviewed and no addt'l complaints, except as documented Vital Signs Vital Signs Vital Signs: 11/24/22 09:10 11/24/22 09:10 Temperature 97.8 F Temperature Source Temporal Pulse Rate 77 Respiratory Rate 17 Respiratory Pattern Normal Blood Pressure 163/81 H Blood Pressure Mean 108 Blood Pressure Source Manual Blood Pressure Position Semi-Fowlers Blood Pressure Location Left Arm Pulse Ox 98 Oxygen Delivery Method Room Air Weight Weight: 268 lb 15.423 oz Body Mass Index (BMI) 39.6 Physical Exam Const alert General Appearance: cooperative Orientation / Consciousness: oriented to person HEENT hearing grossly normal bilaterally Head and Scalp: normal to inspection Face and Sinus: face symmetric Nose: external nose normal Mouth: oral and palatal mucosa normal Eyes conjunctivae normal General Eye: normal appearance of both eyes Neck full ROM General: normal visual inspection Lymph Lymphatic: no lymphadenopathy noted Chest inspection of chest normal and palpation of chest normal Chest: symmetrical chest wall rise Resp normal respiratory effort Effort and Inspection: able to speak in complete sentences Cardio regular rate GI non-distended Percussion: normal to percussion Rectal Exam: deferred Neuro Speech: speech normal Gait (Neuro): normal gait Assessment & Plan Assessment/Plan (1) Encounter for screening for malignant neoplasm of colon: PLAN: He was explained alternatives, risk, benefits including not withstanding bleeding, infection, sepsis, perforation, need for emergent surgery . He will have an ASA of 3.
--- NOTE | 2022-11-24 09:30 | COLBX_PTH ---
PATIENT: HINA ROMANO LOC: EN U#:[id number] AGE/SX: 62/M ROOM: RE11/24/[address]: Dr. Ravi Fraser DO : 1960 BED: DIS: 11/24/2022 SPEC #: [id number] RECD: 11/24/22 13:54 STATUS: JUSTICE REMaya #: [id number] ROSI: 11/24/22 09:[address]: Ravi Fraser DEPT: SURGICAL PATHOLOGY RECD BY: Clementine Barone ENTERED: 11/25/22 09:43 SP TYPE: COLON BX OTHR DR: Dr. Harinder Comer MD Tissues: COLON BIOPSY Procedures: Surgery Specimen Level IV HEADER OPERATION: Colonoscopy - open access with polyp biopsy PRE-OP DIAGNOSIS: Screening TISSUE SUBMITTED: Hepatic flexure polyp MICROSCOPIC DIAGNOSIS Hepatic flexure polyp, biopsy: Tubular adenoma. JAMES:maine 11/26/2022 MICROSCOPIC DESCRIPTION Slides are reviewed. GROSS DESCRIPTION Received in fixative is one container labeled with the patient's name and designated hepatic flexure polyp. The specimen consists of one irregular fragment of light francisco soft tissue that measures 0.3 x 0.3 x 0.1 cm. The specimen is totally submitted in one cassette. / SJ:rg 11/25/2022 TC:1 CPT: 71865
[2022-11-24 09:32] LABS: Bedside Glucose 140 mg/dL (74-106)
--- NOTE | 2022-11-24 09:56 | OP.COLON_ITS ---
Patient Name: Storm Marin Procedure Date: 11/24/2022 9:30 AM Date of : 1960 Age: 62 Procedure: Colonoscopy Indications: Screening for colorectal malignant neoplasm Providers: Ravi Fraser DO Medicines: Monitored Anesthesia Care Patient Profile: This is a 62 year old male. Refer to note in patient chart for documentation of history and physical. Last Colonoscopy: none. The patient's first colonoscopy is today. Complications: No immediate complications. Procedure: Pre-Anesthesia Assessment: - Prior to the procedure, a History and Physical was performed, and patient medications and allergies were reviewed. The risks and benefits of the procedure and the sedation options and risks were discussed with the patient. All questions were answered and informed consent was obtained. Patient identification and proposed procedure were verified by the physician in the pre-procedure area. Mental Status Examination: alert and oriented. Airway Examination: normal oropharyngeal airway and neck mobility. Respiratory Examination: clear to auscultation. CV Examination: normal. Prophylactic Antibiotics: The patient does not require prophylactic antibiotics. Prior Anticoagulants: The patient has taken no anticoagulant or antiplatelet agents. ASA Grade Assessment: II - A patient with mild systemic disease. After reviewing the risks and benefits, the patient was deemed in satisfactory condition to undergo the procedure. The anesthesia plan was to use monitored anesthesia care (MAC). Immediately prior to administration of medications, the patient was re-assessed for adequacy to receive sedatives. The heart rate, respiratory rate, oxygen saturations, blood pressure, adequacy of pulmonary ventilation, and response to care were monitored throughout the procedure. The physical status of the patient was re-assessed after the procedure. After I obtained informed consent, the scope was passed under direct vision. Throughout the procedure, the patient's blood pressure, pulse, and oxygen saturations were monitored continuously. The pediatric colonoscope was introduced through the anus and advanced to the cecum, identified by appendiceal orifice and ileocecal valve. The colonoscopy was performed without difficulty. The patient tolerated the procedure well. The quality of the bowel preparation was adequate. The ileocecal valve, appendiceal orifice, and rectum were photographed. Scope In: 9:38:06 AM Scope Withdrawal Time 0 hours 6 minutes 27 seconds Scope Out: 9:51:14 AM Total Procedure Duration Time 0 hours 13 minutes 8 seconds Findings: The perianal and digital rectal examinations were normal. Multiple small and large-mouthed diverticula were found in the recto-sigmoid colon, sigmoid colon and descending colon. A 7 mm polyp was found in the hepatic flexure. The polyp was sessile. The polyp was removed with a cold snare. Resection and retrieval were complete. Verification of patient identification for the specimen was done. Estimated blood loss was minimal. Impression: - Diverticulosis in the recto-sigmoid colon, in the sigmoid colon and in the descending colon. - One 7 mm polyp at the hepatic flexure, removed with a cold snare. Resected and retrieved. Recommendation: - Repeat colonoscopy in 5 years for surveillance. - Continue present medications. Procedure Code(s): --- Professional --- 89019, Colonoscopy, flexible; with removal of tumor(s), polyp(s), or other lesion(s) by snare technique CPT copyright 2021 [employer]. All rights reserved. The codes documented in this report are preliminary and upon medical language specialist review may be revised to meet current compliance requirements. Ravi Fraser DO 11/24/2022 9:55:48 AM This report has been signed electronically. Number of Addenda: 0 Note Initiated On: 11/24/2022 9:30 AM
--- NOTE | 2022-11-24 09:56 | OP.CCLET_ITS ---
11/24/2022 Murali Comer [address] [place] [address] Re : Colonoscopy procedure for Storm Marin Dear Dr. Comer This procedure was performed on Thursday, November 24, 2022. My impressions and recommendations are as follows: Impressions : - Diverticulosis in the recto-sigmoid colon, in the sigmoid colon and in the descending colon. - One 7 mm polyp at the hepatic flexure, removed with a cold snare. Resected and retrieved. Recommendations : - Repeat colonoscopy in 5 years for surveillance. - Continue present medications. My findings are described in the full procedure note, which is enclosed. If I can be of further assistance, please feel free to contact me at . Sincerely, Ravi Fraser, 11/24/2022 9:55:48 AM This report has been signed electronically.
[2022-11-24 09:59] VITALS: BP 121/63; BP 163/81; PULSE 80; RESP 16; TEMP 36.4; O2SAT 95
[2022-11-24 10:05] VITALS: BP 123/66; BP 163/81; PULSE 73; RESP 16; O2SAT 96
[2022-11-24 10:10] VITALS: BP 135/67; BP 163/81; PULSE 79; RESP 16; O2SAT 96
[2022-11-24 10:14] VITALS: BP 145/76; BP 163/81; PULSE 74; RESP 18; TEMP 36.7; O2SAT 98
[2022-11-24 10:33] VITALS: BP 163/81
== END 2022-11-24 10:58 | disposition home or self-care (01) ==
LOC: EN 08:39 → AC 08:40
PROVIDERS: PCP Family Medicine; Referring Provider Family Medicine; Visit Provider Internal Medicine Gastroenterology
PROC: 0DJD8ZZ Inspection of Lower Intestinal Tract, Via Natural or Artificial Opening Endoscopic (ICD-10-PCS; CPT 45378; principal; 2022-11-24 09:25)
DX: Z12.11 Encounter for screening for malignant neoplasm of colon (principal); E11.9 Type 2 diabetes mellitus without complications; Z79.4 Long term (current) use of insulin; K57.30 Diverticulosis of large intestine without perforation or abscess without bleeding; I10 Essential (primary) hypertension; E78.2 Mixed hyperlipidemia; D64.9 Anemia, unspecified; E03.9 Hypothyroidism, unspecified; D12.3 Benign neoplasm of transverse colon; Z79.890 Hormone replacement therapy; Z79.899 Other long term (current) drug therapy
CPT/HCPCS: 45385; 82962; 88305; J7120

== ENCOUNTER 2023-01-19 16:19 | Emergency (ER) | payer OTHER, SELFPAY ==
[2023-01-19 16:19] VITALS: BP 199/85; PULSE 90; RESP 16; TEMP 36.2; O2SAT 99; BMI 41.3
[2023-01-19 16:57] VITALS: BP 164/90; PULSE 89; RESP 18; TEMP 37.3; O2SAT 97
--- NOTE | 2023-01-19 17:10 | EKG12_ITS ---
Test Reason : HTN Blood Pressure : / mmHG Vent. Rate : 078 BPM Atrial Rate : 078 BPM P-R Int : 142 ms QRS Dur : 068 ms QT Int : 354 ms P-R-T Axes : 054 019 051 degrees QTc Int : 403 ms Normal sinus rhythm Normal ECG Confirmed by RICKY STARK, ANA ([id number]), editor news ADITYA RODRIGUEZ ([id number]) on 01/24/2023 1:53:37 P M Referred By: Confirmed By:JOSUE GARCÍA MD
--- NOTE | 2023-01-19 17:11 | EX.ED.DYSGE1 ---
HPI History of Present Illness Chief Complaint: Hypertension Informant: patient Onset/Context/Timing Onset: Weeks Context: Gradual Onset Timing: Continuous Quality: Lightheaded Location: Generalized Worsened by: Nothing Relieved by: Nothing Narrative Narrative: Presents with elevated blood pressures that have been getting progressively worse over the past week. Patient states that his primary care physician recently increased his lisinopril but states this has not been helping with his blood pressures. Patient states he also feels like he has cellulitis in both lower extremities. Patient states he has a history of cellulitis. Patient admits to low-grade fever up to 100 at home. Patient also admits to some subjective chills. Patient denies any chest pain or shortness of breath. Patient denies any nausea or vomiting. Patient states he feels lightheaded at times. Patient states nothing makes it better and nothing makes it worse. [facility] Medical History Anemia Cardiology follow-up encounter Cellulitis of right leg Diabetes Essential hypertension Gout Heartburn High cholesterol History of DVT (deep vein thrombosis) History of echocardiogram History of edema History of GI bleed History of kidney stones History of stress test History of tilt table evaluation Hypothyroidism Mixed hyperlipidemia Non-smoker Syncope Thyroid disease Type 2 diabetes mellitus Wears glasses Home Medications dulaglutide 0.75 mg/0.5 mL subcutaneous pen injector 1.5 mg SQ QWEEK 03/26/18 [History Last Taken Unknown] insulin lispro 100 unit/mL subcutaneous pen 15 unit SQ TIDCM 03/26/18 [History Last Taken Unknown] levothyroxine 100 mcg tablet 100 mcg PO DAILY 03/26/18 [History Last Taken Unknown] atorvastatin 40 mg tablet 40 mg PO QHS 04/04/19 [History Last Taken Unknown] sildenafil 100 mg tablet 100 mg PO DAILY PRN sexual activity 04/04/19 [History Last Taken Unknown] omeprazole 20 mg tablet,delayed release 20 mg PO DAILY PRN acid reflux 04/12/19 [History Last Taken Unknown] insulin glargine 100 unit/mL subcutaneous solution 40 unit subcut DAILY 07/26/19 [History Last Taken Unknown] ferrous sulfate 325 mg (65 mg iron) tablet 325 mg PO DAILY 11/10/22 [History Last Taken Unknown] lisinopril 10 mg tablet 40 mg PO DAILY 11/23/22 [History Last Taken Unknown] cephalexin 500 mg capsule 500 mg PO Q6 #40 CAPSULES 01/19/23 [Rx Last Taken Unknown] Allergy/AdvReac Type Severity Reaction Status Date / Time No Known Allergies Allergy Verified 11/24/22 08:51 Family History Father CAD (coronary artery disease) History of coronary artery bypass surgery Surgical History Gastric bypass status for obesity Social History household members: none current occupational status: employed current occupation: [employer] Smoking Status: Never smoker alcohol intake: never substance use type: does not use caffeine: Yes Type: carbonated beverages Number of servings: 2 and coffee Number of servings: 1 ROS ROS ED Constitutional Constitutional ED: Reports chills, fever(s) and subjective Eyes Eyes: Denies blurry vision or change in vision ENT ENT ED: Denies rhinorrhea or sore throat Cardiovascular Cardiovascular: Denies chest pain or palpitations Respiratory/Chest Respiratory/Chest: Denies cough or dyspnea Gastrointestinal Gastrointestinal: Denies nausea or vomiting Genitourinary Genitourinary ED: Denies dysuria or hematuria Musculoskeletal Musculoskeletal: Denies back pain or neck pain Integumentary Reports rash; Denies abscess Neurologic Neurologic: Denies headache(s) or weakness Allergic/Immunologic Allergic/Immunologic ED: Denies mouth swelling or urticaria EXAM Physical Exam Const Vital Signs: 01/19/23 16:19 01/19/23 16:57 01/19/23 17:01 Temperature 97.2 F L 99.2 F H Temperature Source Temporal Oral Pulse Rate 90 89 Respiratory Rate 16 18 Respiratory Effort Normal Non-Labored Respiratory Pattern Normal Blood Pressure 199/85 H 164/90 H Blood Pressure Mean 123 114 Pulse Ox 99 97 Oxygen Delivery Method Room Air Room Air 01/19/23 19:51 Temperature 98.2 F Temperature Source Oral Pulse Rate 78 Respiratory Rate 16 Respiratory Effort Respiratory Pattern Blood Pressure 132/78 H Blood Pressure Mean 96 Pulse Ox 95 Oxygen Delivery Method Room Air Positive well nourished, well developed and obese General Appearance ED: well developed and NAD Nutritional Appearance: obese HEENT Reports moist mucous membranes Neck supple and no JVD Resp normal respiratory effort and clear to auscultation bilaterally Cardio regular rate and regular rhythm GI non-tender and non-distended Palpation: soft Extremity Extremity Narrative: There is edema, erythema, and warmth over the lower legs bilaterally, worse on the left. There is good range of motion. There is no deformity noted. Patient states that his left leg is normally larger than his right. General Extremety ED: Yes edema and tenderness General Extremity: edema Neuro oriented x3, CN's II-XII intact bilaterally and no sensory deficits noted Psych mental status grossly normal MDM MDM MDM Narrative Medical decision making narrative: Differential diagnosis includes cellulitis, sepsis, hypertensive urgency, uncontrolled hypertension, cardiac dysrhythmia, cardiac ischemia, and electrolyte abnormality. EKG will be obtained to assess for cardiac dysrhythmia and cardiac ischemia. CBC will be obtained to assess for leukocytosis and anemia. Basic metabolic profile will be obtained to assess for electrolyte abnormality and renal function. PT was INR and PTT will be obtained to assess for coagulopathy. Lactate will be obtained to assess for sepsis. High-sensitivity troponin will be obtained to assess for cardiac ischemia. Blood cultures will be obtained to assess for sepsis. Lab Data Attestation: I reviewed the patient's lab results. Lab results narrative: CBC was reviewed and was within normal limits. PT was INR and PTT were reviewed and were within normal limits. Serum lactate was reviewed and was normal at 0.8. Basic metabolic profile was reviewed and was within normal limits. High-sensitivity troponin was reviewed and was normal at 9. Labs: Laboratory Results - last 24 hr 01/19/23 17:20 WBC 4.5 RBC 4.67 Hgb 13.4 Hct 40.6 MCV 86.9 MCH 28.7 MCHC 33.0 RDW Std Deviation 47.3 H RDW Coeff of Shannon 14.8 H Plt Count 172 MPV 11.1 Immature Gran % (Auto) 0.200 Neut % (Auto) 80.0 H Lymph % (Auto) 8.8 L [place] % (Auto) 7.6 Eos % (Auto) 2.7 Baso % (Auto) 0.7 Absolute Neuts (auto) 3.6 Absolute Lymphs (auto) 0.39 L Nucleated RBC % 0 Differential Comment SCANNED PT 14.3 INR 1.1 APTT 27.0 Sodium 138 Potassium 3.9 Chloride 107 Carbon Dioxide 28.0 Anion Gap 3 L BUN 14 Creatinine 0.64 L Estim Creat Clear Calc 119.67 Est GFR (MDRD) Af Amer 162 Est GFR (MDRD) Non-Af 134 BUN/Creatinine Ratio 21.8 H Glucose 195 H Lactic Acid 0.8 Calcium 8.3 L Troponin I High Sens 9 EKG Initial EKG: Attestation: I personally reviewed and interpreted this EKG as follows: Interpretation: Sinus Rhythm (78) and No Acute Injury Pattern Comments: EKG was obtained. On my independent interpretation, it showed a normal sinus rhythm with a rate of 78. RI interval, QRS interval, and QTc intervals were all normal. [place] was normal. There are no acute ST or T wave changes. Prior EKG tracings: available for review Prior: Unchanged (09/09/2022) Treatment and Re-Evaluation :: Patient was given a dose of Keflex here. Patient was advised of his findings. Patient's blood pressure improved to 132/78. Patient was instructed to take Tylenol or ibuprofen as needed for any fevers or pain. Patient was given a prescription for Keflex. Patient was instructed to follow-up with his primary care physician in 5 to 7 days. Patient understood and was agreeable with the plan. All questions were answered. Discharge Plan Triage Chief Complaint: Hypertension Other Complaint: Cellulitis ED Provider: Candido Boo Dx/Rx/DC Orders Clinical Impression: Cellulitis of both lower extremities, Essential hypertension, Type 2 diabetes mellitus Instructions: ED Cellulitis Prescriptions: New cephalexin [cephalexin] 500 mg capsule 500 mg PO Q6 Qty: 40 0RF No Action atorvastatin 40 mg tablet 40 mg PO QHS sildenafil 100 mg tablet 100 mg PO DAILY PRN (Reason: sexual activity) Rx Instructions: administer 30 minutes to 4 hours before activity omeprazole 20 mg tablet,delayed release (DR/EC) 20 mg PO DAILY PRN (Reason: acid reflux) ferrous sulfate 325 mg (65 mg iron) tablet 325 mg PO DAILY insulin lispro 100 UNIT/ML insulin pen 15 unit SQ TIDCM dulaglutide 0.75 MG/0.5 ML pen injector 1.5 mg SQ QWEEK levothyroxine 100 MCG tablet 100 mcg PO DAILY Patient Comments: TAKE 1 TABLET BY MOUTH ONCE DAILY insulin glargine 100 unit/mL solution 40 unit SC DAILY lisinopril 10 mg tablet 40 mg PO DAILY Primary Care Provider: Murali Comer Referrals: Murali Comer MD [Primary Care Provider] - 5-7 Days Disposition Disposition: Home, Self Care
[2023-01-19 17:36] LABS: Absolute Lymphocyte Count 0.39 X10^3/uL (0.83-4.51); Absolute Neutrophil Count 3.6 X10^3/uL (2.0-7.7); Basophil# 0.03 X10^3/uL; Basophil% 0.7 % (0-1); Eosinophil# 0.12 X10^3/uL; Eosinophils% 2.7 % (0-5); Hematocrit 40.6 % (40-54); Hemoglobin 13.4 g/dL (13.0-16.5); Lymphocyte # 0.39 X10^3/ul (0.83-4.51); Lymphocyte % 8.8 % (19-41); Mean Corpuscular Hgb 28.7 pg (27.0-32.0); Mean Corpuscular Volume 86.9 fL (80-94); Mean Platelet Vol. 11.1 fl (6.2-12.0); Monocyte# 0.34 X10^3/uL; Monocyte% 7.6 % (0-10); NRBC Flagged by Analyzer 0 % (0-5); Neutrophil # 3.56 X10^3/uL (2.7-7.7); POSITIVE DIFFERENTIAL YES; Platelet Count 172 K/mm3 (150-450); RBC Distribution Width CV 14.8 % (11.6-14.6); RBC Distribution Width SD 47.3 fl (35.1-43.9); Red Blood Count 4.67 M/mm3 (4.6-6.2); White Blood Count 4.5 K/mm3 (4.4-11.0)
[2023-01-19 17:40] LABS: Differential Indicated SCAN CRITERIA MET
[2023-01-19 17:52] LABS: Lactic Acid 0.8 mmol/L (0.4-1.9)
[2023-01-19 17:53] LABS: Anion Gap 3 (5-15); BUN 14 mg/dL (7-18); BUN/Creat Ratio 21.8 RATIO (10-20); Calcium,Total 8.3 mg/dL (8.5-10.1); Chloride 107 mmol/L (98-107); Creatinine, Serum 0.64 mg/dL (0.70-1.30); EST Glomerular Filtration Rate 134 mL/min (>60); Est Glom Filt Rate - Afr Amer 162 mL/min (>60); Estimated Creatinine Clearance 119.67 ml/min; Glucose 195 mg/dL (74-106); Potassium 3.9 mmol/L (3.5-5.1); Sodium Level 138 mmol/L (136-145); Troponin-I HS 9 pg/mL (3.0-78.0)
[2023-01-19 18:21] LABS: International Normalized Ratio 1.1; Prothrombin Time (Protime)PT. 14.3 SECONDS (11.7-14.9)
[2023-01-19 18:25] LABS: Differential Comment SCANNED
[2023-01-19 19:51] VITALS: BP 132/78; PULSE 78; RESP 16; TEMP 36.8; O2SAT 95
[2023-01-19] MEDS: Cephalexin 500 MG Capsule PO (20:27)
== END 2023-01-19 21:13 | disposition home or self-care (01) ==
PROVIDERS: Emergency Provider Emergency Medicine; PCP Family Medicine; Visit Provider Emergency Medicine
DX: L03.115 Cellulitis of right lower limb (principal); E11.9 Type 2 diabetes mellitus without complications; R50.9 Fever, unspecified; L03.116 Cellulitis of left lower limb; E78.2 Mixed hyperlipidemia; I10 Essential (primary) hypertension; Z79.899 Other long term (current) drug therapy; E66.9 Obesity, unspecified
CPT/HCPCS: 36415; 80048; 83605; 84484; 85025; 85610; 85730; 87040; 93005; 99284; A4216

== ENCOUNTER 2023-03-30 16:02 | Emergency (ER) | payer OTHER, SELFPAY ==
[2023-03-30 16:03] VITALS: BP 184/89; PULSE 83; RESP 16; TEMP 36.4; O2SAT 98
--- NOTE | 2023-03-30 16:15 | CT_ITS ---
STUDY: CT ABDOMEN AND PELVIS WITH CONTRAST REASON FOR EXAM: Male, 62 years old. Pain RADIATION DOSAGE (If Supplied By Facility): CTDIvol = ( 18.65 ) mGy, DLP = ( 1461.36 ) mGycm TECHNIQUE: Transaxial images were obtained from the dome of the diaphragm to the symphysis pubis without oral contrast. IV 100mL Isovue-370 was administered. Sagittal and coronal images were reconstructed. Individualized dose optimization techniques were used for this CT. COMPARISON: None. FINDINGS: The visualized lung bases are unremarkable. The visualized portions of the heart are within normal limits. Normal liver. Normal gallbladder and extrahepatic biliary system. Normal spleen. Normal pancreas. Normal bilateral adrenal glands. Normal right kidney. There is 1.7 cm solid enhancing mass at the lower pole of the left kidney. There is a 0.2 cm stone at the upper pole of the left kidney. There is no hydronephrosis. There is postoperative change of the stomach and proximal small intestine. There is mild distention of proximal small intestinal loops in the left upper quadrant. Normal colon. The appendix is visualized and appears normal. Normal abdominal aorta. Normal inferior vena cava. There is a retroaortic left renal vein. Normal retroperitoneum. There are mesenteric lymph nodes measuring up to 1.2 cm. Normal urinary bladder. There is no free fluid in the abdomen or pelvis. Normal abdominal wall. There is degenerative change of the spine and hips. CT/Abdomen/Pelvis W IV Cont ONLY IMPRESSION: Postoperative change. Proximal small bowel distention with enteritis or ileus. Solid enhancing mass of the left kidney suggesting renal cell carcinoma. Left renal stone. No hydronephrosis. N.B. : Neo Kendrick MD, confirmed on 03/30/2023 19:02:15 (ET) that the healthcare facility has received the radiology report. Electronically Signed: Jan Hackett MD at 18:53 EST ,
--- NOTE | 2023-03-30 16:16 | ED.VIS.GI ---
HPI HPI - GI History of Present Illness Chief Complaint: Abd Pain Narrative Narrative: 62-year-old male past medical history of diabetes, hypertension, hypothyroidism, history of remote gastric bypass surgery presents with multiple somatic complaints. He states that he has extremely elevated blood pressure. Additionally, over the last 3 to 4 days, he is had crampy abdominal pain that is worse whenever he tries to drink something. That seems to set it off. It will last a few minutes. He denies any nausea or vomiting. No fevers or chills. No problems with bowel movements. He also thinks that he has cellulitis of his bilateral lower extremities. He relates history that he was seen a few months ago in the emergency department and given cephalexin, but does not think it was powerful enough . He did not follow-up with his primary care provider however. He has noticed increased swelling of his legs and perhaps some redness. [facility] Medical History Anemia Cardiology follow-up encounter Cellulitis of right leg Diabetes Essential hypertension Gout Heartburn High cholesterol History of DVT (deep vein thrombosis) History of echocardiogram History of edema History of GI bleed History of kidney stones History of stress test History of tilt table evaluation Hypothyroidism Mixed hyperlipidemia Non-smoker Syncope Thyroid disease Type 2 diabetes mellitus Wears glasses Home Medications dulaglutide 0.75 mg/0.5 mL subcutaneous pen injector 1.5 mg SQ QWEEK 03/26/18 [History Last Taken Unknown] insulin lispro 100 unit/mL subcutaneous pen 15 unit SQ TIDCM 03/26/18 [History Last Taken Unknown] levothyroxine 100 mcg tablet 100 mcg PO DAILY 03/26/18 [History Last Taken Unknown] atorvastatin 40 mg tablet 40 mg PO QHS 04/04/19 [History Last Taken Unknown] sildenafil 100 mg tablet 100 mg PO DAILY PRN sexual activity 04/04/19 [History Last Taken Unknown] omeprazole 20 mg tablet,delayed release 20 mg PO DAILY PRN acid reflux 04/12/19 [History Last Taken Unknown] insulin glargine 100 unit/mL subcutaneous solution 40 unit subcut DAILY 07/26/19 [History Last Taken Unknown] ferrous sulfate 325 mg (65 mg iron) tablet 325 mg PO DAILY 11/10/22 [History Last Taken Unknown] lisinopril 10 mg tablet 40 mg PO DAILY 11/23/22 [History Last Taken Unknown] cephalexin 500 mg capsule 500 mg PO Q6 #40 CAPSULES 01/19/23 [Rx Last Taken Unknown] Allergy/AdvReac Type Severity Reaction Status Date / Time No Known Allergies Allergy Verified 11/24/22 08:51 Family History Father CAD (coronary artery disease) History of coronary artery bypass surgery Surgical History Gastric bypass status for obesity Social History household members: none current occupational status: employed current occupation: [employer] Smoking Status: Never smoker alcohol intake: never substance use type: does not use caffeine: Yes Type: carbonated beverages Number of servings: 2 and coffee Number of servings: 1 ROS ROS ED ROS Narrative Constitutional: No fever, no chills. Elevated blood pressure. HEENT: No sore throat. No neck pain. No loss of vision. No rhinorrhea. Cardiovascular: No chest pain. No palpitations. No pedal edema. Respiratory: No cough, no shortness of breath. Abdominal: Epigastric to upper bilateral quadrant abdominal pain. No nausea. No vomiting. No problems with bowel movements. Last a few minutes after drinking. More crampy in nature. Genitourinary: No dysuria. No hematuria. Musculoskeletal: No myalgias. No arthralgias. Neurologic: No headaches. No dizziness. No lightheadedness. Skin: No rash. Redness to bilateral lower extremities change in color. Psychiatric: No depression. No anxiety. EXAM Physical Exam Narrative Exam Narrative: Afebrile. Vital signs noted. Blood pressure 184/89 with history of hypertension. HEENT: Normocephalic. Atraumatic. PERRL, EOMI. Neck soft and supple. No point tenderness or step off. Cardiovascular: Regular rate and rhythm. No murmurs, rubs, or gallops appreciated. Respiratory: No tachypnea. Lungs clear to auscultation bilaterally. Gastrointestinal: Abdomen soft, nontender, with normoactive bowel sounds. No rebound or guarding. Neurological: Awake. Alert. Nonfocal, nonlateralizing. Skin: No rash. Normal color. No pallor. Musculoskeletal: Bilateral lower extremity pedal edema. Full range of motion extremities. Const Vital Signs: 03/30/23 16:03 03/30/23 18:02 Temperature 97.6 F L Temperature Source Temporal Pulse Rate 83 Respiratory Rate 16 Blood Pressure 184/89 H 165/78 H Blood Pressure Mean 120 107 Pulse Ox 98 Oxygen Delivery Method Room Air MDM MDM MDM Narrative Medical decision making narrative: Regarding his abdominal pain, in the differential is obstruction versus pancreatitis versus diverticulitis, but he is not showing any signs of problems with bowel movements. No fevers or chills, no nausea or vomiting. In the differential is also nonspecific abdominal pain. I do not see overt swelling or erythema of his bilateral lower extremities and a me think that he is having cellulitis. He is afebrile here. Given his elevated blood pressure, he will be given 5 mg of hydralazine intravenously. I reviewed his medication list and he is already on lisinopril 40 mg daily. He also takes atorvastatin. I reviewed the patient's laboratory work and he has a normal white count of 5.0, hemoglobin normal at 13.5, hematocrit 41.5, platelet count normal at 181. Electrolyte panel shows elevated chloride of 109 which I think is nonspecific, creatinine low at 0.62 with a BUN of 10. Glucose appropriately elevated at 106. AST is low at 14 with a normal ALT of 19, alk phos is normal at 112. Lipase is low at 11 so I doubt pancreatitis. Urinalysis obtained and reviewed and is negative for infection. I do not feel antibiotics are indicated. I reviewed the CT report which shows no evidence of hydronephrosis or an acute process. There are dilated small bowel loops consistent with ileus versus enteritis. As he is not having nausea and vomiting, I do not feel that he has an obstructive ileus and that he can be discharged. Of note, there is also a renal mass noted on the left. After 5 of hydralazine, his blood pressure was 165 systolic and he was asymptomatic, but it started to creep up again. I reviewed his medication list and he has maxed out on his lisinopril at 40 mg a day. I did discuss the patient with Dr. Montes on-call for Dr. Comer, who is comfortable with blood pressure control here and discharge. However, the patient is to follow-up tomorrow morning and call the office at 8 AM for an appointment to be seen by either Dr. Montes or Dr. Comer regarding his elevated blood pressure for which she is asymptomatic currently, and for his left renal mass which also could be the cause of exacerbation of his hypertension. Return instructions to the emergency department were reviewed. I do not feel he requires observation at this time. Disposition is discharged home in stable condition. History & Record Review Discussion w/independent historian: Patient Additional record(s) reviewed:: Prior ED visit and Prior labs Lab Data Attestation: I reviewed the patient's lab results. Labs: Laboratory Results - last 24 hr 03/30/23 03/30/23 17:05 18:40 WBC 5.0 RBC 4.70 Hgb 13.5 Hct 41.5 MCV 88.3 MCH 28.7 MCHC 32.5 RDW Std Deviation 45.6 H RDW Coeff of Shannon 14.1 Plt Count 181 MPV 11.5 Immature Gran % (Auto) 0.200 Neut % (Auto) 77.8 H Lymph % (Auto) 12.0 L [place] % (Auto) 8.2 Eos % (Auto) 1.4 Baso % (Auto) 0.4 Absolute Neuts (auto) 3.9 Absolute Lymphs (auto) 0.60 L Nucleated RBC % 0 Sodium 140 Potassium 4.0 Chloride 109 H Carbon Dioxide 29.0 Anion Gap 2 L BUN 10 Creatinine 0.62 L Est GFR (MDRD) Af Amer 167 Est GFR (MDRD) Non-Af 138 BUN/Creatinine Ratio 16.0 Glucose 106 Calcium 8.4 L Total Bilirubin 0.40 AST 14 L ALT 19 Alkaline Phosphatase 112 Total Protein 6.1 L Albumin 2.9 L Globulin 3.2 Albumin/Globulin Ratio 0.9 Lipase 11 L Urine Color Yellow Urine Clarity Clear Urine pH 8.0 Ur Specific [place] 1.010 Urine Protein Negative Urine Glucose (UA) Normal Urine Ketones 5 H Urine Occult Blood Negative Urine Nitrite Negative Urine Bilirubin Negative Urine Urobilinogen Normal Ur Leukocyte Esterase Negative Urine RBC 0 SEEN Urine WBC 0 SEEN Ur Squamous Epith Cells 0 SEEN Urine Bacteria 0 SEEN Urine Mucus 0 SEEN Radiography Diagnostic Testing: Clinical Impression(s) from Imaging Studies Abdomen/Pelvis CT 03/30/23 16:15 IMPRESSION: Postoperative change. Proximal small bowel distention with enteritis or ileus. Solid enhancing mass of the left kidney suggesting renal cell carcinoma. Left renal stone. No hydronephrosis. Electronically Signed: Jan Hackett MD at 18:53 EST , ADDENDUM: 03/30/23 190 IMPRESSION: Postoperative change. Proximal small bowel distention with enteritis or ileus. Solid enhancing mass of the left kidney suggesting renal cell carcinoma. Left renal stone. No hydronephrosis. N.B. : Neo Kendrick MD, confirmed on 03/30/2023 19:02:15 (ET) that the healthcare facility has received the radiology report. Electronically Signed: Jan Hackett MD at 18:53 EST , Discharge Plan Triage Chief Complaint: Abd Pain Other Complaint: Cellulitis Dizziness ED Provider: Neo Kendrick Dx/Rx/DC Orders Clinical Impression: Essential hypertension, Renal mass, Lymphedema, Abdominal pain Prescriptions: No Action atorvastatin 40 mg tablet 40 mg PO QHS sildenafil 100 mg tablet 100 mg PO DAILY PRN (Reason: sexual activity) Rx Instructions: administer 30 minutes to 4 hours before activity omeprazole 20 mg tablet,delayed release (DR/EC) 20 mg PO DAILY PRN (Reason: acid reflux) ferrous sulfate 325 mg (65 mg iron) tablet 325 mg PO DAILY insulin lispro 100 UNIT/ML insulin pen 15 unit SQ TIDCM dulaglutide 0.75 MG/0.5 ML pen injector 1.5 mg SQ QWEEK levothyroxine 100 MCG tablet 100 mcg PO DAILY Patient Comments: TAKE 1 TABLET BY MOUTH ONCE DAILY insulin glargine 100 unit/mL solution 40 unit SC DAILY cephalexin [cephalexin] 500 mg capsule 500 mg PO Q6 Qty: 40 0RF lisinopril 10 mg tablet 40 mg PO DAILY Primary Care Provider: Murali Comer Referrals: Murali Comer MD [Primary Care Provider] - 1 Day Activity Restrictions/Additional Instructions: Call your primary care provider's office tomorrow morning at 8 AM to be seen tomorrow. They will address your elevated blood pressure at that time. Return with fever, vomiting, increased abdominal pain, new or worsening symptoms. Additionally, follow-up with them regarding your renal mass. Disposition Disposition: Home, Self Care
[2023-03-30 17:15] LABS: Absolute Neutrophil Count 3.9 X10^3/uL (2.0-7.7); Basophil# 0.02 X10^3/uL; Basophil% 0.4 % (0-1); Eosinophil# 0.07 X10^3/uL; Eosinophils% 1.4 % (0-5); Hematocrit 41.5 % (40-54); Hemoglobin 13.5 g/dL (13.0-16.5); Mean Corp Hgb Conc 32.5 g/dL (32-36); Mean Corpuscular Hgb 28.7 pg (27.0-32.0); Mean Corpuscular Volume 88.3 fL (80-94); Mean Platelet Vol. 11.5 fl (6.2-12.0); Monocyte# 0.41 X10^3/uL; Monocyte% 8.2 % (0-10); NRBC Flagged by Analyzer 0 % (0-5); Neutrophil % 77.8 % (47-70); POSITIVE DIFFERENTIAL YES; Platelet Count 181 K/mm3 (150-450); RBC Distribution Width CV 14.1 % (11.6-14.6); RBC Distribution Width SD 45.6 fl (35.1-43.9)
[2023-03-30 17:33] LABS: ALB/GLOB Ratio 0.9 RATIO (0.9-2.4); AST(SGOT) 14 U/L (15-37); Alanine Aminotransfer ALT/SGPT 19 U/L (16-61); Albumin, Serum 2.9 g/dL (3.2-5.0); Alkaline Phosphatase 112 U/L (45-117); Anion Gap 2 (5-15); BUN 10 mg/dL (7-18); Calcium,Total 8.4 mg/dL (8.5-10.1); Chloride 109 mmol/L (98-107); Creatinine, Serum 0.62 mg/dL (0.70-1.30); EST Glomerular Filtration Rate 138 mL/min (>60); Est Glom Filt Rate - Afr Amer 167 mL/min (>60); Globulin 3.2 g/dL (2.2-4.2); Glucose 106 mg/dL (74-106); Lipase 11 U/L (13-75); Protein, Total 6.1 g/dL (6.4-8.2); Sodium Level 140 mmol/L (136-145)
[2023-03-30] MEDS: hydrALAZINE 20 MG/ML Vial 5 MG IV ×2 (17:38→19:30)
[2023-03-30] MEDS: 0.9% Normal Saline (1000mL) 1,000 ML 1000 ML IV (17:38)
[2023-03-30 18:02] VITALS: BP 165/78
[2023-03-30 18:49] LABS: Bacteria 0 SEEN /hpf (None Seen); Mucous, Urine 0 SEEN /hpf (<or=2+); Red Blood Cells-Urine 0 SEEN /hpf (0-5); Squamous Epithelial Cells - UA 0 SEEN /hpf (0-5); White Blood Cells 0 SEEN /hpf (0-5)
[2023-03-30 18:53] LABS: Color, Urine Yellow (Yellow); Glucose, Dipstick Normal (Normal); Ketone-Dipstick 5 mg/dl (Negative); Leukocyte Esterase-Dipstick Negative /ul (Negative); Nitrite-Dipstick Negative (Negative); Occult Blood-Urine Negative /ul (Negative); Protein-Dipstick Negative (Negative); Urine Bilirubin Dipstick Negative (Negative); Urine Clarity Clear (Clear); Urine Urobilinogen Normal (Normal)
[2023-03-30 19:50] VITALS: BP 165/78; PULSE 74; RESP 18; TEMP 36.4; O2SAT 97
== END 2023-03-30 19:52 | disposition home or self-care (01) ==
PROVIDERS: Emergency Provider Emergency Medicine; PCP Family Medicine; Visit Provider Emergency Medicine
DX: N28.89 Other specified disorders of kidney and ureter (principal); E11.9 Type 2 diabetes mellitus without complications; R42 Dizziness and giddiness; I10 Essential (primary) hypertension; I89.0 Lymphedema, not elsewhere classified; E03.9 Hypothyroidism, unspecified; Z98.84 Bariatric surgery status; E78.2 Mixed hyperlipidemia; Z79.899 Other long term (current) drug therapy
CPT/HCPCS: 74177; 80053; 81001; 83690; 85025; 96361; 96374; 96376; 99284; J7030; Q9967; A4216

== ENCOUNTER → 2023-04-04 | Outpatient (CLI) | payer OTHER, SELFPAY ==
[2023-04-04] VITALS (14 sets, daily range): BP systolic 112–166; BP diastolic 53–110; PULSE 71–83; RESP 11–17; TEMP 36.2; O2SAT 15–99; BMI 39.6
--- NOTE | 2023-04-04 10:00 | ASPIGT_PTH ---
PATHOLOGY RESULTS PATIENT: HINA ROMANO LOC: [place] U#:[id number] AGE/SX: 62/M ROOM: RE04/04/[address]: Dr. Itz Montes MD : 1960 BED: DIS: 04/04/2023 SPEC #: [id number] RECD: 04/04/23 10:30 STATUS: JUSTICE REMaya #: [id number] ROSI: 04/04/23 10:[address]: Itz Montes DEPT: SURGICAL PATHOLOGY RECD BY: Clementine Barone ENTERED: 04/04/23 11:07 SP TYPE: ASP RAD OTHR DR: Dr. Harinder Comer MD Tissues: Kidney, NOS Procedures: FNA Specimen Adequacy Special Stain Group II Surgery Specimen Level IV Imprint (control) HEADER OPERATION: Left kidney biopsy PRE-OP DIAGNOSIS: Renal mass TISSUE SUBMITTED: Renal mass 18-gauge x5 MICROSCOPIC DIAGNOSIS Renal mass, CT-guided core biopsy: Fragments of benign renal parenchymal tissue, negative for malignancy. See comment. SJ:maine 04/05/2023 COMMENT The specimen is evaluated at the time of biopsy by Dr. Rivas. Immediate Evaluation = Adequate for evaluation. Correlation with clinical, radiologic findings and appropriate follow up are necessary. Re-biopsy is suggested if clinically indicated. Case has been reviewed in consultation with Dr. Bahena who concurs with the above diagnosis. IDC:[id number] MICROSCOPIC DESCRIPTION Slides are reviewed. GROSS DESCRIPTION Received in fixative is one container labeled with the patient's name and designated left kidney biopsy. The specimen consists of multiple elongated fragments of francisco tissue that in aggregate measure 1.0 x 0.2 x 0.1 cm. The specimen is totally submitted in one cassette. / AM:maine 04/04/2023 TC:5 CPT: 07193, 01382
[2023-04-04 10:09] LABS: International Normalized Ratio 0.9; Prothrombin Time (Protime)PT. 12.5 SECONDS (11.7-14.9)
[2023-04-04] MEDS: Midazolam 2 MG/2 ML Syringe IV (10:19)
[2023-04-04] MEDS: 0.9% Normal Saline (250mL Bag) 250 ML 15 ML IV (10:19)
[2023-04-04] MEDS: fentaNYL 100 MCG/2 ML Ampul IV ×2 (10:21→10:39)
[2023-04-04] MEDS: Lidocaine 2% (20 ml mdv) 20 ML Vial INFILT (10:29)
--- NOTE | 2023-04-04 10:49 | PCM.OP.PRO ---
Procedure Report Date of Procedure: 04/04/23 Assessment & Plan Assessment/Plan (1) Renal mass: PLAN: PROCEDURE: CT GUIDED PERCUTANEOUS KIDNEY BIOPSY of left renal mass ORDERING PROVIDER: Dr. Montes INDICATION: Male, 62 years old. Left renal mass. PROVIDER: SWAPNA Christine CONSENT: Written informed consent was obtained having explained the risks, benefits and alternatives in detail with the patient. The specific risk of hemorrhage requiring further treatment or intervention was detailed and accepted. The patient accepted the risks and agreed to proceed. Laboratory review and clinical assessment was performed. PRE-PROCEDURE SEDATION ASSESSMENT: Current history and physical dictated by referring provider and reviewed. No clinical changes since date of exam. Patient has an ASA Class of 2. PROCEDURAL SEDATION PROTOCOL: The Drugs used were: 2 mg Versed, IV, and 75 mcg Fentanyl, IV. The sedation time was: 23 minutes, starting at 1019 and terminated at 1042. The procedural sedation protocol was independently monitored by the department nurse. RADIATION DOSAGE (If Supplied By Facility): CTDIvol = 24.07 mGy, DLP = 626.09 mGycm Individualized dose optimization techniques were used for this CT. TECHNIQUE: The patient was placed on the CT table in the prone position. Multiple axial images were obtained from the lung base through the caudal extent of the kidneys. An appropriate entry site was identified and a chente made on the skin. The skin overlying the left posterior flank was prepped and draped in sterile fashion. 2% lidocaine was administered subcutaneously for local anesthesia. Using CT guidance, an 18-gauge coaxial biopsy device was advanced to the periphery of the left renal mass. A total of 5 core specimens were obtained. Specimens were microscopically reviewed by pathology in the CT suite and placed in formalin solution for further analysis. The needle was withdrawn. Hemostasis was achieved with manual compression and a sterile dressing was applied. The patient tolerated the procedure well without immediate complications. The patient returned to the holding bay in stable condition for nursing monitoring, per protocol. IMPRESSION: 1. Successful CT guided percutaneous left renal mass biopsy. Pathology results are pending. 2. Procedural Sedation protocol utilized with independent monitoring by the department nurse. Procedures Radiology Radiology CT Procedures: [id number] Biopsy Kidney
== END | disposition home or self-care (01) ==
LOC: CT 08:40
PROVIDERS: Nurse Practitioner Acute Care; PCP Family Medicine; Referring Provider Family Medicine; Visit Provider Family Medicine
DX: N28.89 Other specified disorders of kidney and ureter (principal)
CPT/HCPCS: 50200; 36415; 77012; 85610; 85730; 88172; 88305; 88313; 99156; J7050; A4216

== ENCOUNTER → 2023-05-03 | Outpatient (CLI) | payer OTHER, SELFPAY ==
[2023-05-03 14:12] LABS: Bacteria 0 SEEN /hpf (None Seen); Mucous, Urine 0 SEEN /hpf (<or=2+); Red Blood Cells-Urine 0 SEEN /hpf (0-5); Squamous Epithelial Cells - UA 0 SEEN /hpf (0-5); White Blood Cells 0 SEEN /hpf (0-5)
[2023-05-03 15:12] LABS: Color, Urine Yellow (Yellow); Glucose, Dipstick Normal (Normal); Ketone-Dipstick Negative (Negative); Leukocyte Esterase-Dipstick Negative /ul (Negative); Nitrite-Dipstick Negative (Negative); Occult Blood-Urine Negative /ul (Negative); Protein-Dipstick Negative (Negative); Urine Bilirubin Dipstick Negative (Negative); Urine Clarity Clear (Clear); Urine Urobilinogen Normal (Normal); Urine pH 6.5 (5.0 - 8.0)
[2023-05-03 15:52] LABS: Microalbumin,Random Urine 32.5 mg/L (NO RANGE EST.)
[2023-05-03 17:54] LABS: Hematocrit 43.8 % (40-54); Hemoglobin 14.3 g/dL (13.0-16.5); Mean Corp Hgb Conc 32.6 g/dL (32-36); Mean Corpuscular Hgb 29.5 pg (27.0-32.0); Mean Corpuscular Volume 90.3 fL (80-94); Mean Platelet Vol. 11.6 fl (6.2-12.0); Platelet Count 203 K/mm3 (150-450); RBC Distribution Width SD 46.5 fl (35.1-43.9); Red Blood Count 4.85 M/mm3 (4.6-6.2); White Blood Count 4.4 K/mm3 (4.4-11.0)
[2023-05-03 18:10] LABS: ALB/GLOB Ratio 0.9 RATIO (0.9-2.4); AST(SGOT) 17 U/L (15-37); Alanine Aminotransfer ALT/SGPT 26 U/L (16-61); Albumin, Serum 3.2 g/dL (3.2-5.0); Alkaline Phosphatase 99 U/L (45-117); Anion Gap 5 (5-15); BUN 16 mg/dL (7-18); BUN/Creat Ratio 22.7 RATIO (10-20); Calcium,Total 8.6 mg/dL (8.5-10.1); Chloride 105 mmol/L (98-107); Cholesterol 193 mg/dL (200); EST Glomerular Filtration Rate 120 mL/min (>60); Est Glom Filt Rate - Afr Amer 145 mL/min (>60); Globulin 3.4 g/dL (2.2-4.2); Glucose 152 mg/dL (74-106); High Density Lipoprotein 48 mg/dL; Potassium 4.5 mmol/L (3.5-5.1); Protein, Total 6.6 g/dL (6.4-8.2); Sodium Level 137 mmol/L (136-145); T4 Free Direct 1.02 ng/dL (0.76-1.46); Thyroid Stim Hormone (TSH) 2.87 uIU/mL (0.358-3.74); Triglycerides 74 mg/dL; Very Low Density Lipoprotein 15 mg/dL (5-40)
[2023-05-03 18:32] LABS: Hemoglobin A1c 11.2 % (3.8-5.6)
[2023-05-09 16:09] LABS: Aldosterone, Serum < 1.0 ng/dL (0.0-30.0); Renin, Plasma 1.404 ng/mL/hr (0.167-5.380)
== END | disposition home or self-care (01) ==
LOC: MFPLAB 14:11
PROVIDERS: PCP Family Medicine; Visit Provider Family Medicine
DX: I10 Essential (primary) hypertension (principal); E11.9 Type 2 diabetes mellitus without complications; E03.9 Hypothyroidism, unspecified; N28.89 Other specified disorders of kidney and ureter
CPT/HCPCS: 36415; 80053; 80061; 81001; 82043; 82088; 83036; 84244; 84439; 84443; 85027

== ENCOUNTER → 2023-08-02 | Outpatient (CLI) | payer OTHER, SELFPAY ==
[2023-08-02 18:28] LABS: Hemoglobin A1c 11.5 % (3.8-5.6)
[2023-08-02 18:33] LABS: Anion Gap 6 (5-15); BUN 19 mg/dL (7-18); BUN/Creat Ratio 19.9 RATIO (10-20); Calcium,Total 9.1 mg/dL (8.5-10.1); Chloride 101 mmol/L (98-107); Creatinine, Serum 0.96 mg/dL (0.70-1.30); EST Glomerular Filtration Rate 84 mL/min (>60); Est Glom Filt Rate - Afr Amer 102 mL/min (>60); Glucose 252 mg/dL (74-106); Potassium 4.8 mmol/L (3.5-5.1); Sodium Level 135 mmol/L (136-145)
== END | disposition home or self-care (01) ==
LOC: MFPLAB 14:09
PROVIDERS: PCP Family Medicine; Visit Provider Family Medicine
DX: I10 Essential (primary) hypertension (principal); E11.9 Type 2 diabetes mellitus without complications
CPT/HCPCS: 36415; 80048; 83036

== ENCOUNTER → 2023-09-23 | Outpatient (CLI) | payer OTHER, SELFPAY ==
--- NOTE | 2023-09-23 13:46 | CT_ITS ---
EXAM: CT ABDOMEN AND PELVIS WITH INTRAVENOUS CONTRAST CLINICAL INDICATION: NEOPLASM KIDNEY TECHNIQUE: Helically acquired images were obtained of the abdomen and pelvis with intravenous contrast. This CT exam was performed using one or more of the following dose reduction techniques: automated exposure control, adjustment of the mA and/or kV according to patient size, and/or use of iterative reconstruction technique. CONTRAST: IV 100mL [id number] COMPARISON: 03/30/2023 FINDINGS: LOWER THORAX: Coronary artery calcifications. No pericardial effusion or cardiomegaly. ABDOMEN: LIVER: No significant abnormality. Homogeneous. No focal mass. GALLBLADDER AND BILE DUCTS: No significant abnormality. No calcified gallstones. No gallbladder distention or wall edema. No intra- or extrahepatic biliary ductal dilation. PANCREAS: No significant abnormality. No focal cystic or solid mass. SPLEEN: Splenic calcification, perhaps granulomas or secondary to prior injury. Otherwise, the spleen appears normal. ADRENALS: No significant abnormality. No nodules. KIDNEYS AND URETERS: Left lower pole partially exophytic left renal mass is unchanged measuring approximately 1.7 cm. Left upper and lower pole nonobstructing renal calyceal stones measuring up to 2 mm each. No ureteral stone or hydronephrosis is identified. STOMACH AND BOWEL: Bowel anastomosis in the left lower quadrant. 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 No stomach or bowel distention. No focal inflammatory change. PELVIS: APPENDIX: No evidence of acute appendicitis. BLADDER: No significant abnormality. REPRODUCTIVE: Mild prostatomegaly. ABDOMEN and PELVIS: INTRAPERITONEAL SPACE: No significant abnormality. No ascites or other fluid collection. No free air. BONES/JOINTS: No significant abnormality. No suspicious lytic or blastic abnormality. SOFT TISSUES: No significant abnormality. No discrete abdominal or pelvic wall hernia. VASCULATURE: Mild atherosclerosis. Abdominal aorta is non-dilated. LYMPH NODES: No significant abnormality. No enlarged lymph nodes. CT/Abdomen/Pelvis WITH Contrast IMPRESSION: 1. Left lower pole partially exophytic left renal mass is unchanged measuring approximately 1.7 cm. ACR White Paper guidelines (Nathan, et al. JACR 2018; 15(2):264-273) recommend MRI or CT without and with intravenous contrast. Recommend urology consultation. 2. Left upper and lower pole nonobstructing renal calyceal stones measuring up to 2 mm each. No ureteral stone or hydronephrosis is identified. 3. 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 Electronically Signed: Jose David East DO at 14:51 EDT ,
[2023-09-23 15:18] LABS: CREATININE FINGERSTICK < 1.0 mg/dL (0.70-1.30); EGFR FINGERSTICK > 60.0000 mL/min (>60)
== END | disposition home or self-care (01) ==
LOC: CT 13:42
PROVIDERS: PCP Family Medicine; Referring Provider Urology; Visit Provider Urology
DX: Z01.812 Encounter for preprocedural laboratory examination (principal); D41.02 Neoplasm of uncertain behavior of left kidney
CPT/HCPCS: 74177; Q9967